=== PATIENT | female | born 1970 | race Caucasian/White ===

== ENCOUNTER 2020-02-22 14:12 | Emergency (ER) | payer BC, SELFPAY ==
[2020-02-22 14:45] VITALS: PULSE 66; RESP 18; O2SAT 99; BMI 36.6
[2020-02-22 14:51] VITALS: BP 142/77
[2020-02-22 15:14] VITALS: TEMP 36.7
--- NOTE | 2020-02-22 15:18 | HMH.EDUTC ---
[facility] Disposition Clinical Impression: Exposure to viral disease Disposition: Home, Self-Care Condition on Discharge: Good Instructions: Preventing the Spread of Coronavirus Discharge Instructions Additional Instructions: Drink plenty of fluids. Take tylenol or ibuprofen for pain or fever. Follow up with your regular doctor. GO TO THE ER FOR ANY WORSENING SYMPTOMS FOLLOW THE DIRECTIONS ON THE COVID-19 HAND OUT THAT WE GAVE YOU REGARDING SELF-ISOLATION UNTIL YOU KNOW YOUR COVID-19 RESULTS Referrals: Kelly Viera [Primary Care Provider] - Forms: Work/School Release Time of Disposition: 15:21 Medical Decision Making - Medical Records Medical records reviewed: No: I reviewed the patient's medical records. - Rad Inquiry Pt receiving controlled substance: No Vital Signs: 02/22/20 14:45 02/22/20 14:51 02/22/20 15:14 Temperature 98.0 F Temperature Source Oral Pulse Rate Pulse Rate [Radial] 66 Respiratory Rate 18 Blood Pressure Blood Pressure [Right Arm] 142/77 H Blood Pressure Mean [Right Arm] 98 Blood Pressure Source Blood Pressure Source [Right Arm] Automatic Cuff Blood Pressure Position Blood Pressure Position [Right Arm] Sitting 02 Sat by Pulse Oximetry 99 Oxygen Delivery Method Room Air 02/22/20 15:27 Temperature 98.0 F Temperature Source Oral Pulse Rate 66 Pulse Rate [Radial] Respiratory Rate 18 Blood Pressure 142/77 H Blood Pressure [Right Arm] Blood Pressure Mean [Right Arm] Blood Pressure Source Automatic Cuff Blood Pressure Source [Right Arm] Blood Pressure Position Sitting Blood Pressure Position [Right Arm] 02 Sat by Pulse Oximetry Oxygen Delivery Method Room Air [facility] HPI - General Stated complaint: wants covid test Time Seen by Provider: 02/22/20 14:50 Mode of Arrival: Ambulatory Source of Information: Patient Limitations: No Limitations Description of Symptoms (Recalled from Triage Doc. by RN): wants covid test HEENT Symptoms (Recalled from RN notes): No Resp Symptoms (Recalled from RN notes): No Skin Symptoms (Recalled from RN notes): No MS Symptoms (Recalled from RN notes): No Functional Status (Recalled from RN notes): wnl - History of Present Illness Provider Complaint: She denies any symptoms. Her started running a fever and feeling bad this morning. She denies any known exposure to COVID-19. - Related Data Allergies Allergy/AdvReac Type Severity Reaction Status Date / Time No Known Allergies Allergy Unverified 05/12/17 15:07 - Worker's Comp Is this a Worker's Comp case?: No H History - Hepatitis A Screen Drug use history?: No High risk sexual behaviors?: No History of sexually transmitted infection?: No Currently employed?: No Childcare worker?: No Do you have indoor plumbing?: Yes Do you have electricity?: Yes Attestation statement:: This patient has been screened for Hepatitis A risk factors. I have reviewed the patient's past medical history: Yes Medical History: Reports:: Diabetes Mellitus Type 2 Laterality Cases: Left: Other - Social History Alcohol Intake: never Occupational Status: other ROS Obtained: Yes All systems reviewed & no additional complaints - Constitutional Constitutional: Reports chills, Denies fever(s), Reports poor appetite, Reports malaise - Eyes Eyes: Denies eye discharge - ENT Ears, Nose, Mouth, and Throat: Reports as per HPI - Cardiovascular Cardiovascular: Denies chest pain Physical Exam - General General appearance: alert, in no apparent distress - Head Head exam: atraumatic, normocephalic, normal inspection - Eye Eye exam: Present: normal appearance, PERRL, EOMI - ENT ENT exam: Present: normal exam, normal oropharynx, mucous membranes moist, TM's normal bilaterally, normal external ear exam - Neck Neck exam: Present: normal inspection, full ROM, trachea midline. Absent: meningismus, lymphadenopathy - Chest Chest
[2020-02-22 15:27] VITALS: BP 142/77; PULSE 66; RESP 18; TEMP 36.7; O2SAT 99
== END 2020-02-22 15:28 | disposition home or self-care (01) ==
PROVIDERS: Emergency Provider Nurse Practitioner Family; PCP Physician Assistant
DX: U07.1 COVID-19 (principal); E11.9 Type 2 diabetes mellitus without complications
CPT/HCPCS: 99202; U0003

== ENCOUNTER → 2020-07-09 09:44 | Outpatient (CLI) | payer BC, SELFPAY ==
--- NOTE | 2020-07-09 09:54 | XR_ITS ---
PROCEDURE: XR ANKLE WT BEARING LT MIN 3V CLINICAL INDICATION: fracture COMPARISON: No exams were available for comparison FINDINGS: : There is a mildly distal fibular fracture. There is overlying cast material. The upper lateral ankle mortise is narrowed. There is no additional fracture. A prominent os trigonum is incidentally noted. There is a moderate amount of soft tissue swelling over the lateral malleolus. Overlying cast material obscures that soft tissue details. IMPRESSION: Mildly distal fibular fracture with questionable narrowing at the superior lateral ankle mortise. Dictated by: Nubia Rivero MD 07/09/2020 11:37 Nubia Rivero MD in [place] 07/09/2020 11:37
--- NOTE | 2020-07-09 09:54 | XR_ITS ---
PROCEDURE: XR FOOT WT BEARING LT 3V CLINICAL INDICATION: Status post fall on Thursday pain and swelling COMPARISON: CR XR ANKLE WT BEARING LT MIN 3V from 07/09/2020 FINDINGS: There is an overlying cast which obscures some detail. There is an oblique fracture of the distal fibula partly visible on LT foot x-rays. No additional fracture or significant findings. IMPRESSION: Partial visualization of distal fibular fracture. No additional fracture in the foot. Dictated by: Nubia Rivero MD 07/09/2020 11:54 Nubia Rivero MD in [place] 07/09/2020 11:54
--- NOTE | 2020-07-09 12:22 | XR_ITS ---
PROCEDURE: XR CHEST 2V CLINICAL HISTORY: HTN Left ankle fracture common no symptoms on chest, non smoker diabetic COMPARISON: No exams were available for comparison FINDINGS: The cardiomediastinal silhouette and pulmonary vascularity are within normal limits. The lungs are clear without infiltrates, suspicious nodules, or pleural effusions. No acute bony abnormalities. IMPRESSION: No acute findings. Dictated by: Nubia Rivero 07/09/2020 12:54 Nubia Rivero in [place] 07/09/2020 12:54
--- NOTE | 2020-07-09 13:25 | ECG_ITS ---
APPROVED REPORT Exam: Resting ECG HR:54 bpm ECG Measurements Heart Rate 54 AXES MS 160 P 20 QRSd 138 QRS -4 QT 474 T 113 QTc 449 Conclusion Sinus bradycardia Left bundle branch block Abnormal ECG Electronically signed by : Leonard Hightower, 07/09/2020 17:39:10
[2020-07-09 14:33] LABS: Chloride 102 mmol/L (98-107)
[2020-07-09 14:34] LABS: Sodium 138 mmol/L (136-145)
[2020-07-09 14:36] LABS: Blood Urea Nitrogen 19 mg/dl (7-17); Estimated Glomerular Filt Rate 66 ml/min (>60); GFR (African American) 80 ML/MIN (>60)
[2020-07-09 14:37] LABS: Alanine Aminotransferase 48 U/L (12-78); Albumin Level 4.1 g/dl (3.5-5.0); Albumin/Globulin Ratio 1.4 (1.1-1.8); Alkaline Phosphatase 80 U/L (38-126); Anion Gap 8.5 mEq/L (5-15); Aspartate Amino Transferase 33 U/L (14-36); Bilirubin,Total 0.5 mg/dl (0.2-1.3); Calcium 9.8 mg/dl (8.4-10.2); Carbon Dioxide 32 mmol/L (22.0-30.0); Glucose 257 mg/dl (74-100); Potassium 4.5 mmoL/L (3.5-5.1); Total Protein,Serum 7.1 g/dl (6.3-8.2)
[2020-07-09 14:51] LABS: 25-OH Vitamin D, Total 52.5 ng/mL (30-100)
[2020-07-09 15:10] LABS: Basophils % 0.4 % (0.1-2.0); Eosinophils # 0.1 K/mm3 (0.0-0.4); Hemoglobin 13.2 g/dL (12.2-16.2); Lymphocytes # 1.3 K/mm3 (0.7-4.5); Lymphocytes % 22.7 % (10-50); Mean Corpuscular Hemoglobin 29.5 pg (27.0-31.2); Mean Corpuscular Volume 89.3 fl (81-99); Mean Platelet Volume 8.6 fl (7.4-10.4); Monocytes # 0.2 K/mm3 (0.1-1.0); Monocytes % 4.2 % (1.7-9.3); Neutrophils # 3.9 K/mm3 (1.8-7.8); Neutrophils % 70.7 % (37.0-80.0); Platelet Count 188 K/mm3 (142-424); Red Blood Count 4.48 M/mm3 (4.20-5.40); White Blood Count 5.6 K/mm3 (4.8-10.8)
[2020-07-09 15:22] LABS: Hemoglobin A1C 7.8 % (4.0-6.0)
== END ==
PROVIDERS: PCP Physician Assistant; Visit Provider Podiatrist
DX: M25.572 Pain in left ankle and joints of left foot (principal); M79.672 Pain in left foot; Z68.34 Body mass index [BMI] 34.0-34.9, adult; W00.0XXA Fall on same level due to ice and snow, initial encounter
CPT/HCPCS: 36415; 71046; 73610; 73630; 80053; 82306; 83036; 85025; 93005

== ENCOUNTER → 2020-07-16 13:06 | Outpatient (CLI) | payer BC, SELFPAY ==
[2020-07-16 14:30] LABS: Coronavirus 19 IgG Antibody Positive (Negative); Coronavirus 19 IgM Antibody Negative (Negative)
== END ==
PROVIDERS: Visit Provider Podiatrist
DX: Z01.818 Encounter for other preprocedural examination (principal); Z20.822 Contact with and (suspected) exposure to COVID-19; Z86.16 Personal history of COVID-19; S82.842A Displaced bimalleolar fracture of left lower leg, initial encounter for closed fracture; S82.892A Other fracture of left lower leg, initial encounter for closed fracture; S93.422A Sprain of deltoid ligament of left ankle, initial encounter; W00.0XXA Fall on same level due to ice and snow, initial encounter
CPT/HCPCS: 86328

== ENCOUNTER → 2020-07-18 10:49 | Outpatient (CLI) | payer BC, SELFPAY ==
--- NOTE | 2020-07-18 10:53 | CA_ITS ---
APPROVED REPORT EXAM: Comprehensive 2D, Doppler, and color-flow Echocardiogram Senior Category Manager: Rigoberto RCS, RVS Ht: 5 ft 4 in Wt: 200lbs BSA: 1.96 BP: 144/76 mmHg Indications: Pre-op, Abn EKG, RBBB, bradycardia 2D Dimensions IVSd 0.81 cm LVEF (Visual) 54.30 % PWd 0.95 cm LA Volume 32.20 mL LVDd 4.70 cm LA Volume Index 16.10 mL/m2 (M/F) 16-34 LVDs 3.38 cm Aortic Root 3.02 cm Left Atrium 2.93 cm LVOT 1.82 cm (M/F) 1.5-2.5 M-Mode Dimensions LA Diam 3.52 cm (1.9-4.0) Ao Diam 3.30 cm (2.0-3.7) TAPSE 2.13 (<1.7) LV Diastology E Decel Time 207.00 (160-240 msec) E/A Ratio 0.91 MED E' 5.30 (< 7 cm/sec) MED A' 7.90 cm/s E'/MED E' Ratio 15.55 (>14) LAT E' 9.40 (<10 cm/sec) LAT A' 10.20 cm/s E/LAT E' Ratio 8.77 (>14) Aortic Valve LVOT Max 97.00 (70-110 cm/s) LVOT VTI 21.05 cm AoV Peak Shailesh. 129.00 (50-130 cm/s) AO Peak GR. 6.70 mmHg AO Mean GR. 3.60 (<5 mmHg) AO VTI 28.66 (18-25 cm) AMAURY (VTI) 1.91 (2.5-4.5 cm2) Mitral Valve MV E Max Shailesh. 82.00 (40-130 cm/s) MV A Velocity 90.00 (40-130 cm/s) E/A Ratio 0.91 MV Decel. Time 207.00 (160-240 ms) MV PHT 61.00 ms Pulmonary Valve PV Peak Velocity 84.00 (50-150 cm/s) Tricuspid Valve TR P. Velocity 246.00 cm/s RAP Estimate 10.00 mmHg RVSP 34.30 mmHg Left Ventricle Left atrium is mildly enlarged, left ventricle is normal size, mild concentric left ventricular hypertrophy, visually estimated ejection fraction 55% with no regional wall motion abnormality, grade 1 diastolic dysfunction seen without tissue Doppler evidence of raise left atrial pressure. Right Ventricle Right atrium and right ventricle are normal size and contractility. Aortic Valve Aortic valve is grossly normal, there is no aortic stenosis or aortic insufficiency. Mitral Valve Mitral valve is grossly normal, there is trace mitral regurgitation. Tricuspid Valve Tricuspid grossly normal, there is trace tricuspid regurgitation, tricuspid regurgitation jet velocity is inadequate for calculation of the right ventricular systolic pressure. Pulmonic Valve Pulmonic valve is poorly visualized. Great Vessels Aortic root is normal size. Pericardium No significant pericardial effusion noted. Conclusion 1. Mildly enlarged left atrium, normal left ventricular size, mild concentric left ventricular hypertrophy, visually estimated ejection fraction 55% with no regional wall motion abnormality, grade 1 diastolic dysfunction seen without tissue Doppler evidence of raise left atrial pressure. 2. Trace mitral and tricuspid regurgitation. 3. No significant pericardial effusion noted. Electronically signed by : Pedro Luis Mosley, 07/19/2020 13:23:35
[2020-07-18 11:04] VITALS: BMI 34.3
--- NOTE | 2020-07-18 11:05 | XR_ITS ---
PROCEDURE: XR ANKLE LT MIN 3V CLINICAL INDICATION: pre surgical Follow-up fracture COMPARISON: CR XR ANKLE WT BEARING LT MIN 3V from 07/09/2020 FINDINGS: There is a posterior splint in place. There is a nondisplaced oblique distal fibular fracture. The ankle mortise appears slightly widened. IMPRESSION: Nondisplaced distal fibular fracture with mildly widened ankle mortise Dictated by: Duane Proctor MD 07/18/2020 17:12 Duane Proctor MD in [place] 07/18/2020 17:12
== END ==
PROVIDERS: PCP Physician Assistant; Visit Provider Physician Assistant
DX: Z01.818 Encounter for other preprocedural examination (principal); I10 Essential (primary) hypertension; R94.31 Abnormal electrocardiogram [ECG] [EKG]; M25.572 Pain in left ankle and joints of left foot; M79.672 Pain in left foot
CPT/HCPCS: 73610; 93306

== ENCOUNTER → 2020-07-19 07:16 | Outpatient (CLI) | payer BC, SELFPAY ==
--- NOTE | 2020-07-19 | CA_ITS ---
APPROVED REPORT Exam: Pharmacologic Technologist: Shannon Martinez, Ht: 5 ft 4 in Wt: 200 lbs BSA: 1.96 m2 HR: 60 bpm BP: 111/75 mmHg Medical History Medications: Metoprolol,,,,, Metformin,,,,, Gabapentin,,,,, HCTZ,,,,, Citalopram,,,,, AtrovASTATIN,,,,, DApagliflozin,,,,, ONdansentron,,,,, Stress Test Details Test: LEXISCAN HR Resting HR: 61 bpm Max Heart Rate (APMHR): 169 bpm Max HR Achieved: 76 bpm Target HR (85% APMHR): 143 bpm % of APMHR: 44 Recovery HR: 70 bpm BP Resting BP: 111/75 mmHg Max BP: 111/75 mmHg Recovery BP: 102.0/69.0 mmHg ECG Resting ECG: NSR, LBBB Clinical Exercise duration: 04:00 min Highest Stage Achieved: Stress ECG Conclusion Symptoms: 1 minute Malaise, SOA. 3 minute Light-headed layed pt back in chair. During Recovery 3 minute Sxs resolved. No CP Arrythmias/Ectopy: None ST-T Changes: Exaggeration of baseline abns Conclusion: Unremarkable Lexiscan stress. Myoview images reported separately. Test Summary REST . . . . . . . Resting REST 04:08 . . 61 . 111/ 75 . . Stage 1 . . . . . . . Cardiolite injected Stage 1 01:00 . . 61 . . . . Stage 2 01:00 . . 68 . . . . Stage 3 01:00 . . 68 . 85/ 52 . . Stage 4 01:00 . . 66 . 95/ 64 . Stop exercise at 04:00 RECOVERY 01:00 . . 66 . . . . RECOVERY 02:00 . . 69 . 101/ 65 . . RECOVERY 03:00 . . 72 . 107/ 72 . . RECOVERY 04:00 . . 75 . 107/ 72 . . RECOVERY 05:00 . . 72 . 104/ 66 . . RECOVERY 06:00 . . 72 . 104/ 66 . . RECOVERY 07:00 . . 71 . 102/ 69 . . RECOVERY 08:00 . . 68 . 102/ 69 . . RECOVERY 09:00 . . 70 . 107/ 71 . . RECOVERY 09:17 . . 68 . 107/ 71 . . Electronically signed by : Pedro Luis Mosley, 07/19/2020 13:43:26
--- NOTE | 2020-07-19 07:43 | NM_ITS ---
APPROVED REPORT Exam: Nuclear Stress Test Indication: HTN, DM, HYPERLIPIDEMIA, FM HX, ABN EKG Patient Location: Outpatient Stress Tech: Sasha Britton NM Tech:Estrella Talavera ANKUSH RT(R)(N) Ht: 5 ft 4 in Wt: 200 lbs Bra Size: 42DD HR: 60 bpm BP: 111/75 mmHg BSA: 1.96 m2 BMI: 34.3 History: HTN, DM, HYPERLIPIDEMIA, FM HX, ABN EKG Procedure: Patient received a 0.4 mg of intravenous Lexiscan, resting heart rate 60 bpm, resting blood pressure 111/75 mmHg, with Lexiscan maximum heart rate achived was 72 bpm which is Less than 85 % of the maximum predicted heart rate and blood pressure was 85/52 mmHg. With Lexiscan, patient denied any complaint of chest pain. Electrocardiogram Resting electrocardiogram showed sinus rhythm, with Lexiscan there is less than 1.[address] segment depression noted from the baseline EKG. The EKG portion of the Lexiscan is nondiagnostic. Cardiac Stress and Resting SPECT Images: Cardiac Stress and Resting SPECT images were obtained using technetium 99m Myoview 32.9 mCi stress and 10.10 mCi at rest. Gated SPECT for analysis of segmental wall motion and calculation of the ejection fraction also done, Prone images were also obtained. Cardiac stress and rest SPECT images show uniform myocardial activity without segmental perfusion abnormality, computer derived ejection fraction is 55% with no regional wall motion abnormality, right ventricle is normal size and contractility. Conclusion: 1. The EKG portion of the Lexiscan is nondiagnostic. 2. No scintigraphic evidence of reversible ischemia seen, computer derived ejection fraction is 55% with no regional wall motion abnormality, right ventricle is normal size and contractility. 3. Normal Lexiscan Myoview study. Electronically signed by : Pedro Luis Mosley, 07/19/2020 14:49:11
--- NOTE | 2020-07-19 10:24 | HMH.ITSHM ---
Current Home Medications as stated by this patient Chelsie Nuñez or technical sales representatives. [] metoprolol gabapentin atorrastatin
== END ==
PROVIDERS: PCP Physician Assistant; Visit Provider Physician Assistant
DX: Z01.818 Encounter for other preprocedural examination (principal); R94.31 Abnormal electrocardiogram [ECG] [EKG]; E11.9 Type 2 diabetes mellitus without complications; I10 Essential (primary) hypertension; Z79.84 Long term (current) use of oral hypoglycemic drugs
CPT/HCPCS: 78452; 93017; A9502; J2785

== ENCOUNTER 2020-07-20 08:56 | Day surgery (SDC) | payer BC, SELFPAY ==
[2020-07-11 14:19] VITALS: BMI 34.7
[2020-07-20] VITALS (11 sets, daily range): BP systolic 132–144; BP diastolic 74–94; PULSE 55–66; RESP 12–18; TEMP 36.4–43; O2SAT 92–100
[2020-07-20 10:16] LABS: POC Glucose,Bedside 169 (70-110)
[2020-07-20 11:13] LABS: Adenovirus,PCR Not Detected (NotDetected); Bordetella Pertussis Not Detected (NotDetected); Chlamydophila Pneumoniae, PCR Not Detected (NotDetected); Coronavirus 19, PCR Not Detected (NotDetected); Coronavirus 229E Not Detected (NotDetected); Coronavirus NL63 Not Detected (NotDetected); Coronavirus OC43 Not Detected (NotDetected); Coronovirus HKU1,PCR Not Detected (NotDetected); Human Metapneumovirus Not Detected (NotDetected); Influenza A, PCR Not Detected (NotDetected); Influenza AH1, 2009 Not Detected (NotDetected); Influenza AH1, PCR Not Detected (NotDetected); Influenza AH3,PCR Not Detected (NotDetected); Influenza B, PCR Not Detected (NotDetected); Mycoplasma Pneumoniae, PCR Not Detected (NotDetected); Parainfluenza 1, PCR Not Detected (NotDetected); Parainfluenza 2, PCR Not Detected (NotDetected); Parainfluenza 3, PCR Not Detected (NotDetected); Parainfluenza 4, PCR Not Detected (NotDetected); Respiratory Syncytial Virus Not Detected (NotDetected); Rhinovirus/Enterovirus Not Detected (NotDetected)
--- NOTE | 2020-07-20 13:00 | HMH.OPNOTE ---
Date of procedure: 07/20/20 Pre-op Diagnosis:: 1. Left ankle (distal fibula) fracture 2. Left deltoid ligament injury/tear 3. Left syndesmosis instability 4. Left ankle injury 5. Left ankle synovitis Post-op Diagnosis:: Same Procedure performed:: 1. Left ORIF distal fibula 2. Left ORIF syndesmosis 3. Left deltoid ligament repair, medial ankle arthrotomy 4. Left ankle synovectomy 5. Left application of graft 6. Left application of posterior splint Surgeon:: Josiane Rizvi DPM VIRTUAL ASSISTANT FOR ADVERTISERS:: Bam Weller Anesthesia: GETA, regional (left popliteal nerve block) Estimated blood loss (mL): 20 Clinical Note:: Patient is a 50-year-old well-controlled diabetic female who fell several weeks ago. Unfortunately her surgical intervention was delayed due to some cardiac testing due to an abnormal EKG. X-rays 3 views left ankle from [facility] taken 07/06/2020. Report noted. 3 views demonstrate a minimally displaced acute distal fibular fracture. There is a small 6 mm avulsion fracture from the tip of the distal fibula. There is widening of the medial clear space measuring 5 mm suggestive of ligamentous injury. There is lateral malleolar soft tissue swelling. Impression: Acute minimally displaced fracture of the fibula with possible ligamentous injury. X-rays 3 views of left foot and ankle taken 07/09/20, evaluated by myself. New x-rays taken as the patient had put some weight down and I explained this could potentially be surgical fracture and new x-rays would allow me to evaluate whether surgical or not. X-rays reviewed and discussed with the patient. FINDINGS: There is a mildly distal fibular fracture. There is overlying cast material. The upper lateral ankle mortise is narrowed. There is no additional fracture. A prominent os trigonum is incidentally noted. There is a moderate amount of soft tissue swelling over the lateral malleolus. Overlying cast material obscures that soft tissue details. IMPRESSION: Mildly distal fibular fracture with questionable the narrowing at the superior lateral ankle mortise. Conservative treatment discussed but not recommended. DOI: 07/06/20. We discussed surgery. All risks and benefits were discussed including but not limited to: damage to blood vessels and nerves, bleeding, infection, wound complications, delayed, mal or non-union of bone, post-traumatic arthritis, need for further surgery, need for removal of implant, prolonged swelling of the extremity, prolonged pain, CRPS/RSD, DVT, and anesthetic complications. We had a long discussion about complications with diabetes, including delay in skin and bone healing. We discussed increased risk of infection. We also discussed Charcot in terms of neuropathy. Patient did have some sensation on monofilament testing but takes gabapentin for restless leg syndrome. We discussed posttraumatic osteoarthritis. We also discussed DVT prophylaxis. Patient has no personal or family history of DVT/PE. Recommend patient take aspirin postoperatively. No guarantees were given. All questions fully answered. The patient verbalized understanding and agreed to proceed with surgery. Consent was obtained. Necessary labs and pre-op testing ordered: CBC, BMP, EKG, CXR wnl, Ha1c 7.8%, vit D 52.5, covid rapid positive, PCR negative. PCP-Dr. Kelly Viera. Pt was given a e-Rx for [place] 7.5/325 #30, Zofran, Motrin. Patient has crutches. Recommend rolling knee scooter. Cardiology cleared granted 07/19/20. Operative findings:: Left distal fibula spiral oblique fracture with mild comminution noted at the proximal superior fracture site. No cartilage formation noted. Ankle had synovial fluid. Deltoid ligament partially torn with widening of the medial clear space. The syndesmosis did not widen prior to fixation. Post reduction and fixation, negative anterior drawer, negative talar tilt, negative external rotation stress test. Operative note:: On this date and time patient was deemed an appropriate madelin
--- NOTE | 2020-07-20 14:57 | XR_ITS ---
PROCEDURE: XR ANKLE LT 2V CLINICAL INDICATION: ORIF left ankle, in OR follow-up ORIF COMPARISON: CR XR ANKLE WT BEARING LT MIN 3V from 07/09/2020 CR XR ANKLE LT MIN 3V from 07/18/2020 FINDINGS: Fluoroscopy time: 52 seconds. Status post ORIF with lateral fibular bone plate, translucent fixator at the tib fib region, medial malleolar anchor screw, and an additional screw within the fibula. There is good alignment. IMPRESSION: Good alignment status post ORIF distal tib fib Dictated by: Duane Proctor MD 07/20/2020 15:13 Duane Proctor MD in [place] 07/20/2020 15:13
--- NOTE | 2020-07-20 15:00 | XR_ITS ---
PROCEDURE: XR ANKLE LT MIN 3V CLINICAL INDICATION: Post op ankle ORIF Follow-up surgery COMPARISON: CR XR ANKLE WT BEARING LT MIN 3V from 07/09/2020 CR XR ANKLE LT MIN 3V from 07/18/2020 CR XR ANKLE LT 2V from 07/20/2020 FINDINGS: Status post ORIF distal tib fib. There is a lateral fibular bone plate with translucent fixator. [place] screw is present at the medial malleolar region. There is good alignment. Posterior splint is in place. IMPRESSION: Good alignment status post ORIF distal fibular fracture Dictated by: Duane Proctor MD 07/20/2020 16:04 Duane Proctor MD in [place] 07/20/2020 16:04
--- NOTE | 2020-07-20 15:16 | P.PN_ITS ---
[facility] Anesthesia Checklist - Structural Data Admitted From: Home Planned Operative Procedure/s: orif l ankle Consent for Planned Operative Procedure(s) Verified: Yes - Additional verifications Anesthesia Reactions: No Hx Blood Transfusions: No Blood Transfusion Reaction: No - Airway Assessment C-Spine Mobility Assessed: Yes TMJ Mobility Assessed: Yes Dentition: Good Dentition - Neurological Assessment Level of Consciousness: Awake, Alert, Appropriate - Anesthesia Plan Anesthesia Risk discussed: Yes Anesthesia Plan: Verified ASA Class: II Anesthesia Type: General w/block [facility] History I have reviewed the patient's past medical history: Yes Medical History: Reports:: Diabetes Mellitus Type 2, Hyperlipidemia, Hypertension Denies:: Cancer, Diabetes Mellitus Type 1, Internal Pacemaker, MRSA, Seizures *Have you ever received a pneumonia vaccine?: No *Have you received a flu vaccine this season?: Yes Other Medical History: Denies: Blood Transfusion Reaction Anesthesia experience/problems:: none Laterality Cases: Left: Other Other Surgeries: Yes: Tubal Ligation. No: Pacemaker Amputation: No Fractures: No - *Social History Last grade of school completed: High school graduate Smoking Status: Never smoker Alcohol Intake: never Substance Use Type: denies use *Occupational Status:: employed Housing: house Household Members: spouse *Travel in the last 8 weeks: None Family Hx:: Coronary Artery Disease, Diabetes, Heart Attack, Hyperlipidemia, Hypertension, Stroke
--- NOTE | 2020-07-20 15:17 | HMH.ANESI ---
[facility] Anesthesia Record Part I Intake, IV Amount: 1,500 Estimated blood loss (mL): 0 Urine output (mL): 0 Blood Pressure: 138/82 SaO2: 92 Pulse Rate: 66 Respiratory Rate: 12 Temperature: 97.5 F Patient is:: Awake, Stable Stable to PACU at:: 15:15
== END 2020-07-20 16:29 | disposition home or self-care (01) ==
LOC: OR 08:58
PROVIDERS: PCP Physician Assistant; Visit Provider Podiatrist
PROC: (CPT 27814; principal; 2020-07-20 11:45)
DX: S82.842A Displaced bimalleolar fracture of left lower leg, initial encounter for closed fracture (principal); S93.422A Sprain of deltoid ligament of left ankle, initial encounter; E11.42 Type 2 diabetes mellitus with diabetic polyneuropathy; Z79.4 Long term (current) use of insulin; I10 Essential (primary) hypertension; Z79.899 Other long term (current) drug therapy; W00.0XXA Fall on same level due to ice and snow, initial encounter; Y92.018 Other place in single-family (private) house as the place of occurrence of the external cause
CPT/HCPCS: 27814; 27695; C5271; 73600; 73610; 76000; 82962; 87581; 87633; 87798; 96374; C1713; C1762; C1776; J2405; Q4211

== ENCOUNTER → 2020-07-20 09:04 | Outpatient (CLI) | payer BC, SELFPAY ==
[2020-07-20 10:35] LABS: Coronavirus 19 IgG Antibody Positive (Negative)
[2020-07-20 10:36] LABS: Coronavirus 19 IgM Antibody Positive (Negative)
--- NOTE | 2020-07-20 13:52 | P.PN_ITS ---
[facility] Anesthesia Checklist - Structural Data Admitted From: Home Planned Operative Procedure/s: orif l ankle Consent for Planned Operative Procedure(s) Verified: Yes - Additional verifications Anesthesia Reactions: No Hx Blood Transfusions: No Blood Transfusion Reaction: No - Airway Assessment C-Spine Mobility Assessed: Yes TMJ Mobility Assessed: Yes Dentition: Good Dentition - Neurological Assessment Level of Consciousness: Awake, Alert, Appropriate - Anesthesia Plan Anesthesia Risk discussed: Yes Anesthesia Plan: Verified ASA Class: II Anesthesia Type: General w/block [facility] History I have reviewed the patient's past medical history: Yes Medical History: Reports:: Diabetes Mellitus Type 2, Hyperlipidemia, Hypertension Denies:: Cancer, Diabetes Mellitus Type 1, Internal Pacemaker, MRSA, Seizures *Have you ever received a pneumonia vaccine?: No *Have you received a flu vaccine this season?: Yes Other Medical History: Denies: Blood Transfusion Reaction Anesthesia experience/problems:: none Laterality Cases: Left: Other Other Surgeries: Yes: Tubal Ligation. No: Pacemaker Amputation: No Fractures: No - *Social History Smoking Status: Never smoker Alcohol Intake: never Substance Use Type: denies use *Occupational Status:: employed Housing: house Household Members: spouse *Travel in the last 8 weeks: Inside the [place] Family Hx:: Coronary Artery Disease, Diabetes, Heart Attack, Hyperlipidemia, Hypertension, Stroke
== END ==
PROVIDERS: Visit Provider Podiatrist
DX: Z01.818 Encounter for other preprocedural examination (principal); Z20.822 Contact with and (suspected) exposure to COVID-19; Z86.16 Personal history of COVID-19; S82.892A Other fracture of left lower leg, initial encounter for closed fracture
CPT/HCPCS: 36415; 86328

== ENCOUNTER → 2020-07-23 09:22 | Outpatient (CLI) | payer BC, SELFPAY ==
--- NOTE | 2020-07-23 09:29 | XR_ITS ---
PROCEDURE: XR FOOT WT BEARING LT 3V CLINICAL INDICATION: Fall Posttraumatic pain, follow-up surgery COMPARISON: CR XR FOOT WT BEARING LT 3V from 07/09/2020 CR XR ANKLE LT MIN 3V from 07/20/2020 FINDINGS: Posterior splint is present. Status post ORIF distal fibula with an anchor screw in the medial malleolar region. No foot fracture or dislocation is evident. The joint spaces are well-preserved. No significant degenerative/arthritic changes. No erosive changes evident. Other findings:None. IMPRESSION: Postsurgical changes. Unremarkable foot. Bony detail is somewhat limited due to the underlying splint Dictated by: Duane Proctor MD 07/23/2020 13:06 Duane Proctor MD in [place] 07/23/2020 13:06
== END ==
PROVIDERS: PCP Physician Assistant; Visit Provider Podiatrist
DX: Z98.890 Other specified postprocedural states (principal); S93.422D Sprain of deltoid ligament of left ankle, subsequent encounter; S82.832D Other fracture of upper and lower end of left fibula, subsequent encounter for closed fracture with routine healing; S82.842D Displaced bimalleolar fracture of left lower leg, subsequent encounter for closed fracture with routine healing
CPT/HCPCS: 73630

== ENCOUNTER → 2020-08-14 07:36 | Outpatient (CLI) | payer BC, SELFPAY ==
--- NOTE | 2020-08-14 07:41 | XR_ITS ---
PROCEDURE: XR ANKLE WT BEARING LT MIN 3V CLINICAL INDICATION: POST SURGERY,FX OF LT ANKLE COMPARISON: CR XR ANKLE WT BEARING LT MIN 3V from 07/09/2020 CR XR ANKLE LT MIN 3V from 07/18/2020 CR XR ANKLE LT 2V from 07/20/2020 CR XR ANKLE LT MIN 3V from 07/20/2020 FINDINGS: There is good alignment status post ORIF distal tib fib with lateral fibular bone plate, translucent fixator at the tib fib region distally and an anchor screw in the medial malleolar region. The splint has been removed. Ununited ossicles noted at the tip of the fibula. Fibular fracture line is becoming less prominent. IMPRESSION: Good alignment status post ORIF distal tib fib as described above. Dictated by: Duane Proctor MD 08/14/2020 09:03 Duane Proctor MD in [place] 08/14/2020 09:03
== END ==
PROVIDERS: PCP Physician Assistant; Visit Provider Podiatrist
DX: S82.892D Other fracture of left lower leg, subsequent encounter for closed fracture with routine healing (principal)
CPT/HCPCS: 73610

== ENCOUNTER → 2020-08-29 07:43 | Outpatient (CLI) | payer BC, SELFPAY ==
--- NOTE | 2020-08-29 07:47 | XR_ITS ---
PROCEDURE: XR ANKLE WT BEARING LT MIN 3V CLINICAL INDICATION: post-op Follow-up surgery COMPARISON: CR XR ANKLE LT MIN 3V from 07/18/2020 CR XR ANKLE LT 2V from 07/20/2020 CR XR ANKLE LT MIN 3V from 07/20/2020 CR XR ANKLE WT BEARING LT MIN 3V from 08/14/2020 FINDINGS: Status post ORIF distal tib fib with lateral fibular bone plate cortical screws, translucent fixator at the distal tib fib and an anchor screw at the medial malleolar region. Good alignment of the fibular fracture overall not significantly changed. No change well corticated calcific density at the distal fibula. Prominent os trigonum and small calcaneal spur noted. IMPRESSION: Good alignment status post ORIF distal fibula Dictated by: Duane Proctor MD 08/29/2020 08:30 Duane Proctor MD in [place] 08/29/2020 08:30
== END ==
PROVIDERS: PCP Physician Assistant; Visit Provider Podiatrist
DX: Z98.890 Other specified postprocedural states (principal); M79.672 Pain in left foot
CPT/HCPCS: 73610

== ENCOUNTER 2020-10-10 16:00 | Outpatient (RCR) | payer BC, SELFPAY ==
--- NOTE | 2020-09-04 17:16 | HMH.PTOPEV ---
PT Outpatient Evaluation Rehab PT Outpatient Evaluation Start: 09/04/20 15:55 Freq: Status: Active Protocol: Document 09/04/20 15:55 ANTONIO (Rec: 09/04/20 17:16 [id number] [id number]) Electronically Signed By Aris Mauro, PT 09/04/20 15:55 Outpatient Therapy Subjective History Subjective History Pt. is a 50 year old female who presents to outpatient PT clinic w/ complaints of subacute and activity dependent( out of my boot ) LLE ankle P! s/p displaced bimalleolar fx. on 07/20/20. Pt. reports slipping and falling while walking on ice on 07/06/20. Pt. reports X -rays at [facility] ruled in LLE distal tib./fib. fractures. Pt. reports donning a LLE ankle/ft . splint prior to surgery date . Pt. reports she was NWB(knee scooter) on LLE s/p until last Thursday(08/31/20). Pt. reports she is currently progressive partial weight bearing w/ FWW at this time( see protocol). Pt. also reports Dr. Rizvi wants her in an ankle brace after . Pt. RTMD 10/18/20. Current medications include Atorvastatin, Metformin, Farxiga, Citalopram, Metoprolol, and Hydrochlorothiazide. PMH includes a tubal ligation, bilateral Blepharoplasties, Type II Diabetes, Hyperlipidemia, Ablation, RUE wrist ganglion cystectomy, and an Oophorectomy. Chief Complaint Pain,Stiff,Swelling,Weakness Symptom Type Ache Symptoms Relieved By Rest/Positioning,Ice,Brace/ Support Symptoms Aggravated By Standing,Physical Activity, Twisting,Walking,Lifting Prior Functional Limitations None Current Functional Limitations Lifting,Housework,Standing, Squatting,Recreation Activity, Walking,Stairs,Balance Symptom Description
== END 2020-10-25 09:50 | disposition home or self-care (01) ==
LOC: PT.CARL 16:00
PROVIDERS: PCP Physician Assistant; Visit Provider Podiatrist
DX: S82.842A Displaced bimalleolar fracture of left lower leg, initial encounter for closed fracture (principal); S82.892A Other fracture of left lower leg, initial encounter for closed fracture; R60.9 Edema, unspecified; Z98.890 Other specified postprocedural states
CPT/HCPCS: 97010; 97110; 97112; 97116; 97163

== ENCOUNTER → 2020-10-18 09:38 | Outpatient (CLI) | payer BC, SELFPAY ==
--- NOTE | 2020-10-18 09:43 | XR_ITS ---
PROCEDURE: XR ANKLE WT BEARING LT MIN 3V CLINICAL INDICATION: postop views COMPARISON: CR XR ANKLE WT BEARING LT MIN 3V from 07/09/2020 CR XR ANKLE LT 2V from 07/20/2020 CR XR ANKLE LT MIN 3V from 07/20/2020 CR XR ANKLE WT BEARING LT MIN 3V from 08/14/2020 CR XR ANKLE WT BEARING LT MIN 3V from 08/29/2020 FINDINGS: Follow-up surgery lateral fibular bone plate with cortical screws, translucent syndesmotic fixator, and anchor screw within the medial malleolus are once again noted. The ankle mortise is preserved. Faint visualization of the fracture line of the fibula. IMPRESSION: Good alignment status post ORIF healing fibular fracture Dictated by: Duane Proctor MD 10/18/2020 14:38 Duane Proctor MD in [place] 10/18/2020 14:38
== END ==
PROVIDERS: PCP Physician Assistant; Visit Provider Podiatrist
DX: Z98.890 Other specified postprocedural states (principal)
CPT/HCPCS: 73610

== ENCOUNTER 2021-12-24 13:10 | Emergency (ER) | payer BC, OTHER, SELFPAY ==
[2021-12-24 13:30] VITALS: BP 129/83; PULSE 72; RESP 19; TEMP 36.7; O2SAT 98; BMI 33.5
--- NOTE | 2021-12-24 13:42 | XR_ITS ---
FINAL REPORT CLINICAL HISTORY: Pain in right foot and 2nd toe, pain is worse when walking FINDINGS: Right foot Three views were obtained. There is no acute fracture or dislocation. Mild degenerative changes are present. No soft tissue abnormality is identified. IMPRESSION: No acute process. Reviewed, Interpreted and Dictated by Jorge Alberto Coburn III, MD Transcribed by Sabine Thomas Authenticated and [facility]
--- NOTE | 2021-12-24 14:09 | HMH.EDUTC ---
[facility] [place] Clinical Impression: Pseudogout Disposition: Home, Self-Care Condition on Discharge: Good Instructions: DI for Pseudogout, Indomethacin Additional Instructions: Do not take Ibuprofen or Motrin with Indomethacin FOllow up with your Family Doctor if no improvement or any worsening of symptoms Return if needed Straight to ER if any life threatening symptoms Prescriptions: Indomethacin 50 mg PO TID #15 cap Transmission Status: Sent to [facility] #[id number] Referrals: Kelly Viera [Primary Care Provider] - As needed Time of Disposition: 14:38 Medical Decision Making - Rad Inquiry Pt receiving controlled substance: No Rad was queried for this patient: No Vital Signs: 12/24/21 13:30 Temperature 98.1 F Temperature Source Oral Pulse Rate [Right Brachial] 72 Respiratory Rate 19 Blood Pressure [Right Arm] 129/83 Blood Pressure Mean [Right Arm] 98 Blood Pressure Source [Right Arm] Automatic Cuff Blood Pressure Position [Right Arm] Sitting 02 Sat by Pulse Oximetry 98 Oxygen Delivery Method Room Air - Lab Data Lab Results 12/24/21 14:00: Uric Acid 5.9 Orders (Tests/Meds): ORDERS Category Date Time Status XR foot RT min 3V Stat Exams 12/24/21 13:42 Taken - Radiology Data #1 Image(s): Foot/Toes Image Reviewed: Yes I reviewed the patient's radiology image Preliminary Findings: No Fracture Seen [facility] [place] - General Stated complaint: possible gout in right foot Time Seen by Provider: 12/24/21 13:35 Mode of Arrival: Ambulatory Source of Information: Patient Limitations: No Limitations Description of Symptoms (Recalled from Triage Doc. by RN): PATIENT C/O PAIN AND SWELLING TO RIGHT FOOT SINCE THIS MORNING. SHE BELIEVES IT MAY BE GOUT HEENT Symptoms (Recalled from RN notes): No Resp Symptoms (Recalled from RN notes): No Skin Symptoms (Recalled from RN notes): No MS Symptoms (Recalled from RN notes): Yes Functional Status (Recalled from RN notes): WNL - History of Present Illness Provider Complaint: Patient state that she has been having pain redness and swelling in the top of her right foot around her second toe since this morning States that she doesnt remember doing anything to hurt her foot and feels like it may be gout - Related Data Home Medications Medication Instructions Recorded Confirmed atorvastatin 10 mg tablet 10 mg PO DAILY tab 07/09/20 10/18/20 citalopram 20 mg tablet 20 mg PO DAILY tab 07/09/20 10/18/20 gabapentin 300 mg capsule 300 mg PO DAILY cap 07/09/20 10/18/20 hydrochlorothiazide 25 mg tablet 25 mg PO DAILY tab 07/09/20 10/18/20 metoprolol tartrate 25 mg tablet 25 mg PO DAILY tab 07/09/20 10/18/20 Dapagliflozin Propanediol [Farxiga] 10 mg PO DAILY 07/11/20 10/18/20 metformin 500 mg tablet 1,000 mg PO BID tab 07/18/20 10/18/20 Previous Rx's Medication Instructions Recorded hydrocodone 7.5 mg-acetaminophen 1 tab PO Q4-6H PRN 7 Days #40 tab 07/11/20 325 mg tablet ibuprofen 800 mg tablet 800 mg PO BID #60 tab 07/11/20 ondansetron 4 mg disintegrating 4 mg PO Q6H 7 Days #28 tab 07/11/20 tablet Indomethacin 50 mg PO TID #15 cap 12/24/21 Allergies Allergy/AdvReac Type Severity Reaction Status Date / Time No Known Allergies Allergy Verified 10/18/20 14:50 - Worker's Comp Is this a Worker's Comp case?: No [facility] History - Hepatitis A Screen Attestation statement:: This patient has been screened for Hepatitis A risk factors. I have reviewed the patient's past medical history: Yes Medical History: Reports:: Diabetes Mellitus Type 2, Hyperlipidemia, Hypertension Denies:: Cancer, Diabetes Mellitus Type 1, Internal Pacemaker, MRSA, Seizures Other Medical History: Denies: Blood Transfusion Reaction Laterality Cases: Left: Other, Bilateral: Myringotomy (Ear Tubes), Tonsillectomy Other Surgeries: Yes: Tubal Ligation. No: Pacemaker Amputation: No Fractures: No Comment: right wrist cyst removal, ovary removed, b
[2021-12-24 14:22] LABS: Uric Acid 5.9 mg/dl (2.5-6.2)
[2021-12-24 14:45] VITALS: BP 129/83; PULSE 72; RESP 19; TEMP 36.7; O2SAT 98
== END 2021-12-24 14:48 | disposition home or self-care (01) ==
PROVIDERS: Emergency Provider Nurse Practitioner; PCP Physician Assistant
DX: M11.271 Other chondrocalcinosis, right ankle and foot (principal)
CPT/HCPCS: 73630; 84550; 99212; G0463

== ENCOUNTER → 2022-03-14 15:36 | Outpatient (CLI) | payer BC, SELFPAY ==
--- NOTE | 2022-03-14 15:36 | MM_ITS ---
PROCEDURE INFORMATION: Exam: MG Bilateral Screening 3D Mammography Exam date and time: 03/14/2022 3:57 PM Age: 52 years old Clinical indication: Screening. No family history of breast cancer. TECHNIQUE: Imaging protocol: Bilateral Screening tomosynthesis and 2D mammography including computer-aided detection (CAD) when performed. COMPARISON: MG MM DIGITAL LAUREL SCREENING 12/03/2020 3:58 PM FINDINGS: MAMMOGRAPHY: Breast composition: There are scattered areas of fibroglandular density. Mass: No suspicious mass. Architectural distortion: None. Calcifications: No suspicious calcifications. Asymmetric density: None. Skin thickening: None. Axillary adenopathy: None. IMPRESSION: No mammographic evidence of malignancy. Annual screening is recommended unless otherwise clinically indicated. ASSESSMENT: BI-RADS Category 1: Negative
== END ==
PROVIDERS: PCP Family Medicine; Visit Provider Family Medicine
DX: Z12.31 Encounter for screening mammogram for malignant neoplasm of breast (principal)
CPT/HCPCS: 77063; 77067

== ENCOUNTER → 2022-11-06 16:36 | Outpatient (CLI) | payer BC, SELFPAY ==
[2022-11-06 16:52] LABS: Creatinine,Urine Random 473 mg/dL (Not Estab.); Microalbumin/Creatinine Ratio 4.5
== END ==
PROVIDERS: Visit Provider Family Medicine
DX: E11.9 Type 2 diabetes mellitus without complications (principal); Z79.4 Long term (current) use of insulin
CPT/HCPCS: 82043; 82570

== ENCOUNTER → 2023-02-06 07:07 | Outpatient (CLI) | payer BC, SELFPAY ==
[2023-02-06 16:45] LABS: Basophils % 0.4 % (0.1-2.0); Eosinophils # 0.1 K/mm3 (0.0-0.4); Eosinophils % 2.3 % (0.1-12.0); Hematocrit 44.1 % (37.0-47.0); Hemoglobin 14.1 g/dL (12.2-16.2); Lymphocytes # 1.5 K/mm3 (0.7-4.5); Lymphocytes % 23.8 % (10-50); Mean Corpuscular HGB Conc 31.9 g/dL (31.8-35.4); Mean Corpuscular Hemoglobin 28.9 pg (27.0-31.2); Mean Corpuscular Volume 90.6 fl (81-99); Mean Platelet Volume 11.6 fl (7.4-10.4); Monocytes # 0.4 K/mm3 (0.1-1.0); Neutrophils # 4.3 K/mm3 (1.8-7.8); Neutrophils % 67.4 % (37.0-80.0); Platelet Count 158 K/mm3 (142-424); Red Blood Count 4.87 M/mm3 (4.20-5.40); Red Cell Distribution Width 13.4 % (11.5-17.5); White Blood Count 6.4 K/mm3 (4.8-10.8)
[2023-02-06 16:50] LABS: Alanine Aminotransferase 24 U/L (12-78); Albumin Level 3.9 g/dl (3.5-5.0); Albumin/Globulin Ratio 1.3 (1.1-1.8); Alkaline Phosphatase 126 U/L (38-126); Anion Gap 11.8 mEq/L (5-15); Aspartate Amino Transferase 23 U/L (14-36); Bilirubin,Total 0.5 mg/dl (0.2-1.3); Blood Urea Nitrogen 21 mg/dl (7-17); Carbon Dioxide 32 mmol/L (22.0-30.0); Chloride 101 mmol/L (98-107); Chol/HDL Ratio 3.7 (1-3.5); Cholesterol 133 mg/dl (140-200); Estimated Glomerular Filt Rate 52 ml/min (>60); GFR (African American) 63 ML/MIN (>60); Glucose 223 mg/dl (74-100); HDL Cholesterol 36 mg/dl (40-60); Potassium 4.8 mmoL/L (3.5-5.1); Sodium 140 mmol/L (136-145); Total Protein,Serum 6.9 g/dl (6.3-8.2); Triglycerides 121 mg/dl (30-150); VLDL Cholesterol 24 mg/dL (0-40)
[2023-02-06 17:00] LABS: Direct LDL Cholesterol 79.21 mg/dL (100-129)
[2023-02-06 17:15] LABS: Hemoglobin A1C 8.7 % (4.0-6.0)
== END ==
PROVIDERS: PCP Family Medicine; Visit Provider Family Medicine
DX: E11.9 Type 2 diabetes mellitus without complications (principal); I10 Essential (primary) hypertension; E78.5 Hyperlipidemia, unspecified; Z79.4 Long term (current) use of insulin; Z01.89 Encounter for other specified special examinations
CPT/HCPCS: 80053; 80061; 83036; 84443; 85025

== ENCOUNTER → 2023-03-23 16:21 | Outpatient (CLI) | payer BC, SELFPAY ==
--- NOTE | 2023-03-23 16:21 | MM_ITS ---
PROCEDURE INFORMATION: Exam: MG Bilateral Screening 3D Mammography Exam date and time: 03/23/2023 4:10 PM Age: 53 years old Clinical indication: Screening examination TECHNIQUE: Imaging protocol: Bilateral Screening tomosynthesis and 2D mammography including computer-aided detection (CAD) when performed. COMPARISON: 1. MG MM DIG SCREENING MAMM BI W/CAD 03/14/2022 3:57 PM 2. MG MM DIGITAL LAUREL SCREENING 12/03/2020 3:58 PM FINDINGS: MAMMOGRAPHY: Breast composition: There are scattered areas of fibroglandular density. Mass: None. Architectural distortion: None. Calcifications: No suspicious calcifications. Asymmetric density: None. Skin thickening: None. Axillary adenopathy: None. IMPRESSION: No mammographic evidence of malignancy. Annual screening is recommended unless otherwise clinically indicated. ASSESSMENT: BI-RADS Category 1: Negative
== END ==
PROVIDERS: PCP Family Medicine; Visit Provider Family Medicine
DX: Z12.31 Encounter for screening mammogram for malignant neoplasm of breast (principal)
CPT/HCPCS: 77063; 77067

== ENCOUNTER → 2023-04-01 15:34 | Outpatient (CLI) | payer BC, SELFPAY ==
[2023-04-01 16:22] LABS: Chloride 103 mmol/L (98-107); Potassium 3.6 mmoL/L (3.5-5.1); Sodium 140 mmol/L (136-145)
[2023-04-01 16:24] LABS: Blood Urea Nitrogen 19 mg/dl (7-17); Estimated Glomerular Filt Rate 52 ml/min (>60); GFR (African American) 63 ML/MIN (>60)
[2023-04-01 16:25] LABS: Alanine Aminotransferase 33 U/L (12-78); Albumin Level 4.2 g/dl (3.5-5.0); Albumin/Globulin Ratio 1.5 (1.1-1.8); Alkaline Phosphatase 110 U/L (38-126); Anion Gap 9.6 mEq/L (5-15); Aspartate Amino Transferase 32 U/L (14-36); Bilirubin,Total 0.5 mg/dl (0.2-1.3); Calcium 8.9 mg/dl (8.4-10.2); Carbon Dioxide 31 mmol/L (22.0-30.0); Globulin 2.8 g/dL (1.3-3.2); Glucose 109 mg/dl (74-100)
== END ==
PROVIDERS: PCP Family Medicine; Visit Provider Obstetrics & Gynecology
DX: N95.1 Menopausal and female climacteric states (principal)
CPT/HCPCS: 36415; 80053

== ENCOUNTER → 2023-05-22 16:48 | Outpatient (CLI) | payer BC, SELFPAY ==
[2023-05-21 16:34] LABS: Alanine Aminotransferase 27 U/L (12-78); Albumin Level 3.5 g/dl (3.5-5.0); Albumin/Globulin Ratio 1.3 (1.1-1.8); Alkaline Phosphatase 88 U/L (38-126); Anion Gap 8.3 mEq/L (5-15); Aspartate Amino Transferase 28 U/L (14-36); Bilirubin,Total 0.6 mg/dl (0.2-1.3); Blood Urea Nitrogen 20 mg/dl (7-17); Calcium 8.4 mg/dl (8.4-10.2); Carbon Dioxide 26 mmol/L (22.0-30.0); Chloride 106 mmol/L (98-107); Estimated Glomerular Filt Rate 52 ml/min (>60); GFR (African American) 63 ML/MIN (>60); Globulin 2.6 g/dL (1.3-3.2); Glucose 145 mg/dl (74-100); Potassium 4.3 mmoL/L (3.5-5.1); Sodium 136 mmol/L (136-145); Total Protein,Serum 6.1 g/dl (6.3-8.2)
[2023-05-21 17:13] LABS: Hemoglobin A1C 7.7 % (4.0-6.0)
== END ==
LOC: LAB.DROPOF 16:49
PROVIDERS: PCP Family Medicine; Visit Provider Nurse Practitioner Family
DX: E11.9 Type 2 diabetes mellitus without complications (principal); Z79.4 Long term (current) use of insulin; Z79.85 Long-term (current) use of injectable non-insulin antidiabetic drugs
CPT/HCPCS: 80053; 83036

== ENCOUNTER 2023-08-14 18:06 | Outpatient (CLI) | payer BC, SELFPAY ==
[2023-08-14 16:18] LABS: Chloride 106 mmol/L (98-107); Potassium 4.4 mmoL/L (3.5-5.1); Sodium 139 mmol/L (136-145)
[2023-08-14 16:19] LABS: Basophils # 0.1 K/mm3 (0-0.2); Basophils % 0.7 % (0.1-2.0); Eosinophils # 0.2 K/mm3 (0.0-0.4); Eosinophils % 2.4 % (0.1-12.0); Hematocrit 42.9 % (37.0-47.0); Lymphocytes # 1.2 K/mm3 (0.7-4.5); Lymphocytes % 19.5 % (10-50); Mean Corpuscular HGB Conc 32.7 g/dL (31.8-35.4); Mean Corpuscular Hemoglobin 29.9 pg (27.0-31.2); Mean Corpuscular Volume 91.6 fl (81-99); Mean Platelet Volume 10.5 fl (7.4-10.4); Monocytes # 0.3 K/mm3 (0.1-1.0); Monocytes % 5.3 % (1.7-9.3); Neutrophils # 4.6 K/mm3 (1.8-7.8); Platelet Count 258 K/mm3 (142-424); Red Blood Count 4.68 M/mm3 (4.20-5.40); Red Cell Distribution Width 13.6 % (11.5-17.5); White Blood Count 6.4 K/mm3 (4.8-10.8)
[2023-08-14 16:21] LABS: Alanine Aminotransferase 23 U/L (12-78); Albumin Level 3.7 g/dl (3.5-5.0); Albumin/Globulin Ratio 1.3 (1.1-1.8); Alkaline Phosphatase 108 U/L (38-126); Anion Gap 9.4 mEq/L (5-15); Aspartate Amino Transferase 27 U/L (14-36); Bilirubin,Total 0.7 mg/dl (0.2-1.3); Blood Urea Nitrogen 18 mg/dl (7-17); Calcium 8.8 mg/dl (8.4-10.2); Carbon Dioxide 28 mmol/L (22.0-30.0); Cholesterol 117 mg/dl (140-200); Estimated Glomerular Filt Rate 52 ml/min (>60); GFR (African American) 63 ML/MIN (>60); Globulin 2.8 g/dL (1.3-3.2); Glucose 109 mg/dl (74-100); Total Protein,Serum 6.5 g/dl (6.3-8.2); Triglycerides 86 mg/dl (30-150); VLDL Cholesterol 17 mg/dL (0-40)
[2023-08-14 16:22] LABS: Chol/HDL Ratio 5.1 (1-3.5); HDL Cholesterol 23 mg/dl (40-60)
[2023-08-14 16:34] LABS: Direct LDL Cholesterol 68.65 mg/dL (100-129)
[2023-08-14 16:37] LABS: Triiodothryronine (T3) Uptake 33 % (23.5-40.5)
[2023-08-14 16:38] LABS: T4 (Thyroxine) 9.2 ug/dl (5.53-11.0)
[2023-08-14 16:39] LABS: Free T4 (Free Thyroxine) 1.31 ng/dl (0.78-2.19)
[2023-08-14 16:40] LABS: 25-OH Vitamin D, Total 49.8 ng/mL (30-100)
[2023-08-14 16:52] LABS: Thyroid Stimulating Hormone 2.37 uIU/mL (0.465-4.68)
[2023-08-14 16:53] LABS: Hemoglobin A1C 7.4 % (4.0-6.0)
[2023-08-14 17:11] LABS: Vitamin B12 352 pg/mL (239-931)
== END 2023-08-14 23:59 ==
LOC: LAB.DROPOF 18:06
PROVIDERS: PCP Nurse Practitioner Family; Visit Provider Nurse Practitioner Family
DX: E11.9 Type 2 diabetes mellitus without complications (principal); R53.83 Other fatigue; E66.9 Obesity, unspecified; Z79.4 Long term (current) use of insulin; Z68.35 Body mass index [BMI] 35.0-35.9, adult; Z79.899 Other long term (current) drug therapy
CPT/HCPCS: 80053; 80061; 82306; 82607; 83036; 84436; 84439; 84443; 84479; 85025

== ENCOUNTER 2023-11-16 16:47 | Outpatient (CLI) | payer BC, SELFPAY ==
[2023-11-16 18:17] LABS: Hemoglobin A1C 6.6 % (4.0-6.0)
== END 2023-11-16 23:59 | disposition home or self-care (01) ==
LOC: LAB.DROPOF 16:47
PROVIDERS: PCP Nurse Practitioner Family; Visit Provider Nurse Practitioner Family
DX: E11.9 Type 2 diabetes mellitus without complications (principal); Z79.85 Long-term (current) use of injectable non-insulin antidiabetic drugs; Z79.4 Long term (current) use of insulin
CPT/HCPCS: 83036

== ENCOUNTER → 2023-12-01 07:18 | Outpatient (CLI) | payer BC, SELFPAY | LOC: SL 07:19 | PROVIDERS: PCP Nurse Practitioner Family; Visit Provider Nurse Practitioner Family | DX: G47.33 Obstructive sleep apnea (adult) (pediatric) (principal) | CPT/HCPCS: G0399 ==

== ENCOUNTER 2024-01-08 03:16 | Emergency (ER) | payer BC, SELFPAY ==
[2024-01-08] VITALS (13 sets, daily range): BP systolic 149–162; BP diastolic 86–92; PULSE 68–75; RESP 13–18; TEMP 36.6–36.7; O2SAT 95–100; BMI 33.7
--- NOTE | 2024-01-08 03:23 | ED_ITS ---
Discharge Plan Disposition Patient Disposition: Home, Self-Care Prescriptions Prescriptions: New tamsulosin 0.4 mg capsule 0.4 mg PO DAILY Qty: 30 0RF ondansetron HCl 4 mg tablet 4 mg PO Q8H PRN (Reason: nausea and vomiting) 5 Days Qty: 30 0RF No Action (DME) pen needle, diabetic [BD Ultra-Fine Short Pen Needle] 31 gauge x 5/16 needle See Rx Instructions .ROUTE .MEDSUPPLY Qty: 1200 Rx Instructions: As directed betamethasone valerate 0.1 % ointment 1 applic topical DAILY Qty: 45 3RF Rx Instructions: Please apply a blueberry size amount nightly x4 weeks then 2-3 times a week for maintenance (DME) Accu-Chek Gisell Plus test strp Strip See Rx Instructions .ROUTE .MEDSUPPLY Qty: 100 2RF Rx Instructions: As directed (DME) lancets [Accu-Chek Softclix Lancets] Misc See Rx Instructions .ROUTE .MEDSUPPLY Qty: 100 2RF Rx Instructions: As directed Climara Pro 0.045-0.015 mg/24 hr patch weekly 1 patch transdermal WEEKLY Qty: 4 4RF (DME) pen needle, diabetic [BD Adeola 2nd Gen Pen Needle] 32 gauge x 5/32 needle See Rx Instructions .ROUTE .MEDSUPPLY Qty: 50 3RF Rx Instructions: As directed furosemide 20 mg tablet See Rx Instructions .ROUTE .COMPLEX Qty: 30 2RF Dose Instruction: TAKE 1 TABLET BY MOUTH ONCE DAILY NEEDED Rx Instructions: TAKE 1 TABLET BY MOUTH ONCE DAILY NEEDED indomethacin 25 mg capsule 25 mg PO TID Qty: 90 1RF Rx Instructions: administer with food or milk metoprolol tartrate 25 mg tablet See Rx Instructions .ROUTE .COMPLEX Qty: 60 3RF Dose Instruction: TAKE 1 TABLET BY MOUTH TWICE DAILY FOR BLOOD PRESSURE Rx Instructions: TAKE 1 TABLET BY MOUTH TWICE DAILY FOR BLOOD PRESSURE fluconazole 150 mg tablet 150 mg PO Q3D 0 Days Qty: 2 0RF Rx Instructions: may repeat second dose 72 hrs after first dose if symptoms persist Ozempic 1 mg/dose (4 mg/3 mL) pen injector 1 mg SQ WEEKLY Qty: 3 2RF insulin glargine [Lantus Solostar U-100 Insulin] 100 unit/mL (3 mL) insulin pen 54 unit SQ HS Qty: 3 3RF atorvastatin 20 mg tablet 20 mg PO HS 30 Days Qty: 30 2RF Referrals Follow up/Referrals: Rosa Kam APRN [Primary Care Provider] - See instructions Rocco Esparza MD [Staff Physician] - See instructions Activity Restrictions/Add. Instructions Additional Instructions/Restrictions: Please take Tylenol and ibuprofen and Zofran as needed for pain and nausea. Please take Flomax. Please take your previously prescribed hydrocodone as needed for breakthrough pain. If you develop any signs of systemic infection such as fever, chills, or your pain becomes uncontrollable, please return immediately to the emergency department. Clinical Impressions Clinical Impression: Hydronephrosis with ureteral calculus, Acute flank pain Print Language Print Language: Colombian Discharge ED Provider: Ricardo Cordoba General Adult HPI <Flaco Lux MD - Last Filed: 01/08/24 06:47> General Chief complaint: PAIN Stated complaint: L side back pain Time Seen by Provider: 01/08/24 03:22 History of Present Illness HPI narrative: 53-year-old female with history of prior kidney stone presents for left-sided flank pain. She reports it feels exactly like the last time she had a kidney stone. She denies any urinary symptoms such as dysuria, urgency frequency etc. She denies any fever at home. She reports that symptoms started a couple of hours ago. Her last episode was several years ago. Related Data Home Medications ?Medication ?Instructions ?Recorded ?Confirmed pen needle, diabetic 31 gauge x #1,200 ea 03/05/22 11/16/2310/07 (BD Ultra-Fine Short Pen Needle) Previous Rx's ?Medication ?Instructions ?Recorded betamethasone valerate 0.1 % 1 applic topical DAILY #45 grams 04/02/23 topical ointment blood sugar diagnostic (Accu-Chek #100 ea 05/27/23 Gisell Plus test strips) lancets (Accu-Chek Softclix #100 ea 05/27/23 Lancets) estradiol 0.045 mg-levonorgestrel 1 patch transdermal WEEKLY #4 ea 09/30/23 0.015 mg/24hr weekly transderm patch (Climara Pro) pen needle, diabetic 32 gauge x #50 ea 10/07/23 (BD Adeola 2nd Gen Pen Needle) furosemide 20 mg tablet See Rx Instructions .Route 10/26/23 .COMPLEX #30 tabs indomethacin 25 mg capsule 25 mg PO TID #90 caps 11/05/23 metoprolol tartrate 25 mg tablet See Rx Instructions .Route 11/16/23 .COMPLEX #60 tabs fluconazole 150 mg tablet 150 mg PO Q3D 2 doses #2 tabs 11/23/23 semaglutide 1 mg/dose (4 mg/3 mL) 1 mg (0.75 mL) SQ WEEKLY #3 mL 12/02/23 subcutaneous pen injector (Ozempic) insulin glargine 100 unit/mL (3 54 unit (0.54 mL) SQ HS #3 mL 12/18/23 mL) subcutaneous pen (Lantus Solostar U-100 Insulin) atorvastatin 20 mg tablet 20 mg PO HS 30 days #30 tabs 12/28/23 ondansetron HCl 4 mg tablet 4 mg PO Q8H PRN nausea and 01/08/24 vomiting 5 days #30 tabs tamsulosin 0.4 mg capsule 0.4 mg PO DAILY #30 caps 01/08/24 Allergies Allergy/AdvReac Type Severity Reaction Status Date / Time No Known Allergies Allergy Verified 11/16/23 08:12 PFS <Flaco Lux MD - Last Filed: 01/08/24 06:47> [facility] Disclaimer: The information contained in this section may have been updated after the patient was seen, as this information can be updated by other users. Medical History Hyperlipidemia Hypertension Diabetes mellitus Surgical History History of endometrial ablation H/O oophorectomy Family History Mother Diabetes Father Diabetes Stroke Grandmother Diabetes Heart attack Social History Smoking Status: Never smoker second hand exposure: No alcohol intake: never substance use type: denies use current occupational status: employed Travel in the last 8 weeks: None household members: spouse housing: house current occupation: registrar current occupational exposures/hazards: No caffeine: No <Flaco Lux MD - Last Filed: 01/08/24 06:47> ROS Obtained: Yes All systems reviewed & no additional complaints except as documented Physical Exam <Flaco Lux MD - Last Filed: 01/08/24 06:47> General General appearance: alert Comment: Uncomfortable appearing Head Head exam: atraumatic and normocephalic Eye Eye exam: Present normal appearance, PERRL and EOMI ENT ENT exam: Present normal oropharynx and normal external ear exam Neck Neck exam: Present normal inspection and full ROM Chest Chest inspection: Present normal inspection and symmetric chest wall rise; Absent tenderness Respiratory Respiratory exam: Present normal lung sounds bilaterally; Absent respiratory distress Cardiovascular Cardiovascular exam: Present regular rate and normal rhythm Abdominal Exam Abdominal exam: Present soft; Absent distention, tenderness or guarding Extremities Exam Extremities exam: Present normal inspection; Absent edema or joint swelling Back Exam Back exam: Present normal inspection and CVA tenderness (L) Neurological Exam Neurological exam: Present alert and oriented X3; Absent motor sensory deficit Psychiatric Psychiatric exam: Present normal affect and normal mood Skin Skin exam: Present warm, dry and normal color Lymphatic Lymphatic Findings: no adenopathy Medical Decision Making <Flaco Lux MD - Last Filed: 01/08/24 06:47> Medical Records Medical records reviewed: Yes I reviewed the patient's medical records. Rad Inquiry Pt receiving controlled substance: No Rad was queried for this patient: No Vital Signs: 01/08/24 03:17 01/08/24 03:29 01/08/24 04:30 Temperature 97.9 F 97.9 F Temperature Source Oral Oral Pulse Rate 70 68 Pulse Rate [Right] 75 Respiratory Rate 16 18 Blood Pressure 151/92 H 151/92 H Blood Pressure [Right Arm] 162/87 H Blood Pressure Mean [Right Arm] 112 02 Sat by Pulse Oximetry 98 97 100 Oxygen Delivery Method Room Air Room Air 01/08/24 05:00 01/08/24 07:43 01/08/24 08:00 Temperature Temperature Source Pulse Rate 70 72 75 Pulse Rate [Right] Respiratory Rate Blood Pressure 153/86 H 149/86 H 149/86 H Blood Pressure [Right Arm] Blood Pressure Mean [Right Arm] 02 Sat by Pulse Oximetry 98 98 97 Oxygen Delivery Method Room Air 01/08/24 08:30 01/08/24 08:50 Temperature Temperature Source Pulse Rate 72 74 Pulse Rate [Right] Respiratory Rate Blood Pressure 152/92 H Blood Pressure [Right Arm] Blood Pressure Mean [Right Arm] 02 Sat by Pulse Oximetry 96 97 Oxygen Delivery Method Room Air Lab Data Lab results reviewed: Yes I reviewed the patient's lab results. Lab Results 01/08/24 03:31: WBC 8.6, RBC 4.37, Hgb 13.3, Hct 40.0, MCV 91.7, MCH 30.5, MCHC 33.2, RDW 14.2, Plt Count 222, MPV 8.9, Neut % (Auto) 83.4 H, Lymph % (Auto) 10.5, [place] % (Auto) 4.2, Eos % (Auto) 1.6, Baso % (Auto) 0.3, Neut # (Auto) 7.2, Lymph # (Auto) 0.9, [place] # (Auto) 0.4, Eos # (Auto) 0.1, Baso # (Auto) 0.0, Sodium 136, Potassium 4.3, Chloride 105, Carbon Dioxide 26, Anion Gap 9.3, BUN 16, Creatinine 1.30 H, Estimated Creat Clear 72, Estimated GFR 43 L, Est GFR ( Amer) 52 L, Glucose 106 H, Calcium 8.8, Total Bilirubin 0.7, AST 38 H, ALT 28, Alkaline Phosphatase 84, Total Protein 6.5, Albumin 3.7, Globulin 2.8, Albumin/Globulin Ratio 1.3 01/08/24 04:15: Urine Color Yellow, Urine Appearance Clear, Urine pH 6.0, Ur Specific [place] >= 1.030, Urine Protein Trace, Urine Glucose (UA) Negative, Urine Ketones Trace, Urine Blood 3+, Urine Nitrate Negative, Urine Bilirubin Negative, Urine Urobilinogen 1.0, Ur Leukocyte Esterase 1+ A, Urine RBC 3-5, Urine WBC 3-5, Ur Squamous Epith Cells 5-10, Urine Bacteria 1+, Urine Mucus 1+ 01/08/24 03:31 01/08/24 03:31 Orders (Tests/Meds): ED MEDICATIONS Generic Name Dose Route Start Last Admin Trade Name Freq PRN Reason Stop Dose Admin Ceftriaxone Sodium 2 gm/ 100 mls @ 200 mls/hr 01/08/24 09:27 Sodium Chloride IV 01/08/24 09:56 ONCE ONE Discontinued Medications Generic Name Dose Route Start Last Admin Trade Name Freq PRN Reason Stop Dose Admin Acetaminophen 1,000 mg 01/08/24 05:20 01/08/24 05:24 Acetaminophen 1,000mg/100ml Vial IV 01/08/24 05:21 1,000 mg ONCE ONE Administration Hydromorphone HCl 0.5 mg 01/08/24 08:52 01/08/24 08:55 Hydromorphone 2mg/Ml Syringe IV 01/08/24 08:53 0.5 mg ONCE ONE Administration Sodium Chloride 1,000 mls @ 999 mls/hr 01/08/24 03:30 01/08/24 03:34 Sod Chlor 0.9% 1000ml Bag IV 01/08/24 04:30 999 mls/hr .Q1H1M LONNIE Administration Ketorolac Tromethamine 30 mg 01/08/24 03:23 01/08/24 03:34 Ketorolac 30mg/Ml Vial IV 01/08/24 03:24 30 mg ONCE ONE Administration Ondansetron HCl 4 mg 01/08/24 03:23 01/08/24 03:34 Ondansetron 4mg/2ml Vial IV 01/08/24 03:24 4 mg ONCE ONE Administration Ondansetron HCl 4 mg 01/08/24 08:52 01/08/24 08:54 Ondansetron 4mg/2ml Vial IV 01/08/24 08:53 4 mg ONCE ONE Administration Oxycodone HCl 5 mg 01/08/24 07:21 01/08/24 07:27 Oxycodone 5mg Immediate Release Tablet PO 01/08/24 07:22 5 mg ONCE ONE Administration Tamsulosin HCl 0.4 mg 01/08/24 05:15 01/08/24 05:24 Tamsulosin 0.4mg Capsule PO 01/08/24 05:16 0.4 mg ONCE ONE Administration ORDERS Category Date Time Status CT abdomen pelvis wo con Stat Cat Scan 01/08/24 03:23 Completed CBC w/Auto Diff [Complete Blood Count Auto Diff] Stat Lab 01/08/24 03:31 Completed CMP [Comprehensive Metabolic Panel] Stat Lab 01/08/24 03:31 Completed UA [Urinalysis and Microscopic] Stat Lab 01/08/24 04:15 Completed Urine Culture Stat Micro 01/08/24 04:15 Received Medical Decision Narrative: 53-year-old female with history of prior kidney stone presents for left flank pain times a couple of hours. History was obtained via interactive discussion with patient, chart review. On arrival, patient is [afebrile, hemodynamically stable, satting appropriately, alert, oriented x4, GCS 15], moving all extremities spontaneously. Full physical exam performed and significant for left flank tenderness Differential includes but is not limited to kidney stone, UTI, pyelonephritis, aortic pathology, diverticulitis. Patient was given 1 L IV fluid bolus, IV Zofran, IV Tylenol, IV Toradol for symptomatic management and correction of underlying abnormalities. Workup initiated including CBC CMP urinalysis CT Noncon of the abdomen and pelvis. On re-evaluation, patient [remains afebrile, HD stable.] She had some vomiting but improved with Zofran. Laboratory workup independently interpreted by me and significant for no significant leukocytosis, renal function near baseline, no significant electrolyte derangements. Urine shows 3-5 RBCs, 3-5 WBCs, negative nitrate, 1+ bacteria, 5-10 squames. Imaging independently interpreted by me and significant for proximal left ureteral stone approximately 4.8 mm in transverse diameter. See radiology read for full review of final results. Transfer for urology intervention was considered, but deemed unnecessary due to pain controlled, no definitive urinary tract infection on urinalysis. Given patient history, exam and workup, patient's presentation most likely represents acute left-sided obstructing ureterolithiasis. The urine does have 3-5 WBCs, but my typical cutoff for UTI is 5-10. Patient is also nitrate negative and has 5-10 squames and mucus suggesting some contamination. I communicated these findings with patient. She was given strict return precautions. She was discharged with prescription for Flomax and oxycodone given instructions regarding symptomatic care. She will follow-up with urology. <Ricardo Cordoba MD - Last Filed: 01/08/24 09:30> Vital Signs: 01/08/24 03:17 01/08/24 03:29 01/08/24 04:30 Temperature 97.9 F 97.9 F Temperature Source Oral Oral Pulse Rate 70 68 Pulse Rate [Right] 75 Respiratory Rate 16 18 Blood Pressure 151/92 H 151/92 H Blood Pressure [Right Arm] 162/87 H Blood Pressure Mean [Right Arm] 112 02 Sat by Pulse Oximetry 98 97 100 Oxygen Delivery Method Room Air Room Air 01/08/24 05:00 01/08/24 07:43 01/08/24 08:00 Temperature Temperature Source Pulse Rate 70 72 75 Pulse Rate [Right] Respiratory Rate Blood Pressure 153/86 H 149/86 H 149/86 H Blood Pressure [Right Arm] Blood Pressure Mean [Right Arm] 02 Sat by Pulse Oximetry 98 98 97 Oxygen Delivery Method Room Air 01/08/24 08:30 01/08/24 08:50 Temperature Temperature Source Pulse Rate 72 74 Pulse Rate [Right] Respiratory Rate Blood Pressure 152/92 H Blood Pressure [Right Arm] Blood Pressure Mean [Right Arm] 02 Sat by Pulse Oximetry 96 97 Oxygen Delivery Method Room Air Lab Data Lab Results 01/08/24 03:31: WBC 8.6, RBC 4.37, Hgb 13.3, Hct 40.0, MCV 91.7, MCH 30.5, MCHC 33.2, RDW 14.2, Plt Count 222, MPV 8.9, Neut % (Auto) 83.4 H, Lymph % (Auto) 10.5, [place] % (Auto) 4.2, Eos % (Auto) 1.6, Baso % (Auto) 0.3, Neut # (Auto) 7.2, Lymph # (Auto) 0.9, [place] # (Auto) 0.4, Eos # (Auto) 0.1, Baso # (Auto) 0.0, Sodium 136, Potassium 4.3, Chloride 105, Carbon Dioxide 26, Anion Gap 9.3, BUN 16, Creatinine 1.30 H, Estimated Creat Clear 72, Estimated GFR 43 L, Est GFR ( Amer) 52 L, Glucose 106 H, Calcium 8.8, Total Bilirubin 0.7, AST 38 H, ALT 28, Alkaline Phosphatase 84, Total Protein 6.5, Albumin 3.7, Globulin 2.8, Albumin/Globulin Ratio 1.3 01/08/24 04:15: Urine Color Yellow, Urine Appearance Clear, Urine pH 6.0, Ur Specific [place] >= 1.030, Urine Protein Trace, Urine Glucose (UA) Negative, Urine Ketones Trace, Urine Blood 3+, Urine Nitrate Negative, Urine Bilirubin Negative, Urine Urobilinogen 1.0, Ur Leukocyte Esterase 1+ A, Urine RBC 3-5, Urine WBC 3-5, Ur Squamous Epith Cells 5-10, Urine Bacteria 1+, Urine Mucus 1+ Orders (Tests/Meds): ED MEDICATIONS Generic Name Dose Route Start Last Admin Trade Name Rosalinda PRN Reason Stop Dose Admin Ceftriaxone Sodium 2 gm/ 100 mls @ 200 mls/hr 01/08/24 09:27 Sodium Chloride IV 01/08/24 09:56 ONCE ONE Discontinued Medications Generic Name Dose Route Start Last Admin Trade Name Rosalinda PRN Reason Stop Dose Admin Acetaminophen 1,000 mg 01/08/24 05:20 01/08/24 05:24 Acetaminophen 1,000mg/100ml Vial IV 01/08/24 05:21 1,000 mg ONCE ONE Administration Hydromorphone HCl 0.5 mg 01/08/24 08:52 01/08/24 08:55 Hydromorphone 2mg/Ml Syringe IV 01/08/24 08:53 0.5 mg ONCE ONE Administration Sodium Chloride 1,000 mls @ 999 mls/hr 01/08/24 03:30 01/08/24 03:34 Sod Chlor 0.9% 1000ml Bag IV 01/08/24 04:30 999 mls/hr .Q1H1M LONNIE Administration Ketorolac Tromethamine 30 mg 01/08/24 03:23 01/08/24 03:34 Ketorolac 30mg/Ml Vial IV 01/08/24 03:24 30 mg ONCE ONE Administration Ondansetron HCl 4 mg 01/08/24 03:23 01/08/24 03:34 Ondansetron 4mg/2ml Vial IV 01/08/24 03:24 4 mg ONCE ONE Administration Ondansetron HCl 4 mg 01/08/24 08:52 01/08/24 08:54 Ondansetron 4mg/2ml Vial IV 01/08/24 08:53 4 mg ONCE ONE Administration Oxycodone HCl 5 mg 01/08/24 07:21 01/08/24 07:27 Oxycodone 5mg Immediate Release Tablet PO 01/08/24 07:22 5 mg ONCE ONE Administration Tamsulosin HCl 0.4 mg 01/08/24 05:15 01/08/24 05:24 Tamsulosin 0.4mg Capsule PO 01/08/24 05:16 0.4 mg ONCE ONE Administration ORDERS Category Date Time Status CT abdomen pelvis wo con Stat Cat Scan 01/08/24 03:23 Completed CBC w/Auto Diff [Complete Blood Count Auto Diff] Stat Lab 01/08/24 03:31 Completed CMP [Comprehensive Metabolic Panel] Stat Lab 01/08/24 03:31 Completed UA [Urinalysis and Microscopic] Stat Lab 01/08/24 04:15 Completed Urine Culture Stat Micro 01/08/24 04:15 Received Medical Decision Narrative: 53-year-old female with history of prior kidney stone presents for left flank pain times a couple of hours. History was obtained via interactive discussion with patient, chart review. On arrival, patient is afebrile, hemodynamically stable, satting appropriately, alert, oriented x4, GCS 15, moving all extremities spontaneously. Full physical exam performed and significant for left flank tenderness Differential includes but is not limited to kidney stone, UTI, pyelonephritis, aortic pathology, diverticulitis. Patient was given 1 L IV fluid bolus, IV Zofran, IV Tylenol, IV Toradol for symptomatic management and correction of underlying abnormalities. Workup initiated including CBC CMP urinalysis CT Noncon of the abdomen and pelvis. On re-evaluation, patient remains afebrile, HD stable. She had some vomiting but improved with Zofran. Laboratory workup independently interpreted by me and significant for no significant leukocytosis, renal function near baseline, no significant electrolyte derangements. Urine shows 3-5 RBCs, 3-5 WBCs, negative nitrate, 1+ bacteria, 5-10 squames. Imaging independently interpreted by me and significant for proximal left ureteral stone approximately 4.8 mm in transverse diameter. See radiology read for full review of final results. Transfer for urology intervention was considered, but deemed unnecessary due to pain controlled, no definitive urinary tract infection on urinalysis. Given patient history, exam and workup, patient's presentation most likely represents acute left-sided obstructing ureterolithiasis. The urine does have 3-5 WBCs, but my typical cutoff for UTI is 5-10. Patient is also nitrate negative and has 5-10 squames and mucus suggesting some contamination. I communicated these findings with patient. She was given strict return precautions. She was discharged with prescription for Flomax and oxycodone given instructions regarding symptomatic care. She will follow-up with urology. Beryl: I assumed primary responsibility for this patient after signout from previous physician. I agree with the above. Patient has a ride, however is ride and he rides a bus route. Patient does not have ability to go home until he is done with his bus route. I just kept eyes on patient prior to being discharged and sent home with . She was complaining of mild to moderate pain again, 5 mg oxycodone was administered here given Toradol and acetaminophen given just a couple hours ago. Patient's pain still crescendo in nature. Because patient has mild MARIA E with creatinine 1.3 up from baseline of 1.1, proximal left-sided stone with moderate hydronephrosis, patient with intractable pain, deemed appropriate for transfer. [facility] contacted, have no beds or urology available. [facility] was contacted and case was discussed at length, patient graciously accepted for transfer under Dr. So and Dr. Pickard. Because patient high risk for clinical decompensation if discharged, deemed appropriate for transfer and inpatient admission. Results were relayed to patient who voiced understanding and patient was agreeable to transfer, inpatient admission, and management. Procedures <Flaco Lux MD - Last Filed: 01/08/24 06:47> Risk/Benefits of Procedure(s) Were Explained: Yes Critical Care <Flaco Lux MD - Last Filed: 01/08/24 06:47> Critical Care Time Critical Care Time: No <Ricardo Cordoba MD - Last Filed: 01/08/24 09:30> Critical Care Time Critical Care Time: Yes (uro) Attestation: On 01/08/24, the high probability of a clinically significant, sudden or life threatening deterioration of the following system(s) required my full and direct attention, intervention and personal management. The time I documented below is in addition to time spent performing reported procedures but includes the following listed in this critical care notation. Total Time Total Critical Care Time: 60
--- NOTE | 2024-01-08 03:23 | CT_ITS ---
PROCEDURE INFORMATION: Exam: CT Abdomen And Pelvis Without Contrast Exam date and time: 01/08/2024 3:49 AM Age: 53 years old Clinical indication: Abdominal pain; Flank; Left; Additional info: Left flank pain TECHNIQUE: Imaging protocol: Computed tomography of the abdomen and pelvis without contrast. Radiation optimization: All CT scans at this facility use at least one of these dose optimization techniques: automated exposure control; mA and/or kV adjustment per patient size (includes targeted exams where dose is matched to clinical indication); or iterative reconstruction. COMPARISON: ABDPELW/O CT ABD PELVIS W/O CONTRAST 05/04/2017 7:03 PM FINDINGS: Liver: Normal. No mass. Gallbladder and biliary ducts: Normal. No calcified stones. No ductal dilation. Pancreas: Normal. No ductal dilation. Spleen: Normal. No splenomegaly. Adrenal glands: Normal. No mass. Kidneys and ureters: There is a 6 mm stone in the proximal left ureter with moderate left-sided hydronephrosis. Atrophy of the left kidney is noted. Additional intrarenal stone measuring 4 mm is present. Stomach and bowel: Unremarkable. No obstruction. No mucosal thickening. Appendix: No evidence of appendicitis. Intraperitoneal space: Unremarkable. No free air. No significant fluid collection. Vasculature: Unremarkable. No abdominal aortic aneurysm. Lymph nodes: Unremarkable. No enlarged lymph nodes. Urinary bladder: Unremarkable as visualized. Reproductive: Unremarkable as visualized. Bones/joints: Unremarkable. No acute fracture. Soft tissues: Unremarkable. IMPRESSION: 6 mm stone in the proximal left ureter with moderate left-sided hydronephrosis. Atrophy of the left kidney is noted. Additional intrarenal stone measuring 4 mm is present.
[2024-01-08] MEDS: KETOROLAC 30MG/ML VIAL 30 MG IV (03:34)
[2024-01-08] MEDS: ONDANSETRON 4MG/2ML VIAL 4 MG IV ×2 (03:34→08:54)
[2024-01-08] MEDS: 0.9 % SODIUM CHLORIDE 1000ML 1,000 ML 999 ML IV (03:34)
[2024-01-08 03:44] LABS: Basophils % 0.3 % (0.1-2.0); Eosinophils # 0.1 K/mm3 (0.0-0.4); Eosinophils % 1.6 % (0.1-12.0); Hemoglobin 13.3 g/dL (12.2-16.2); Lymphocytes # 0.9 K/mm3 (0.7-4.5); Lymphocytes % 10.5 % (10-50); Mean Corpuscular HGB Conc 33.2 g/dL (31.8-35.4); Mean Corpuscular Hemoglobin 30.5 pg (27.0-31.2); Mean Corpuscular Volume 91.7 fl (81-99); Mean Platelet Volume 8.9 fl (7.4-10.4); Monocytes # 0.4 K/mm3 (0.1-1.0); Monocytes % 4.2 % (1.7-9.3); Neutrophils # 7.2 K/mm3 (1.8-7.8); Neutrophils % 83.4 % (37.0-80.0); Platelet Count 222 K/mm3 (142-424); Red Blood Count 4.37 M/mm3 (4.20-5.40); Red Cell Distribution Width 14.2 % (11.5-17.5); White Blood Count 8.6 K/mm3 (4.8-10.8)
[2024-01-08 03:52] LABS: Alanine Aminotransferase 28 U/L (12-78); Albumin Level 3.7 g/dl (3.5-5.0); Albumin/Globulin Ratio 1.3 (1.1-1.8); Alkaline Phosphatase 84 U/L (38-126); Anion Gap 9.3 mEq/L (5-15); Aspartate Amino Transferase 38 U/L (14-36); Bilirubin,Total 0.7 mg/dl (0.2-1.3); Blood Urea Nitrogen 16 mg/dl (7-17); Calcium 8.8 mg/dl (8.4-10.2); Carbon Dioxide 26 mmol/L (22.0-30.0); Chloride 105 mmol/L (98-107); Creatinine Clearance Estimated 72 mL/min (50-200); Estimated Glomerular Filt Rate 43 ml/min (>60); GFR (African American) 52 ML/MIN (>60); Globulin 2.8 g/dL (1.3-3.2); Glucose 106 mg/dl (74-100); Potassium 4.3 mmoL/L (3.5-5.1); Sodium 136 mmol/L (136-145); Total Protein,Serum 6.5 g/dl (6.3-8.2)
[2024-01-08 04:16] LABS: Microscopic, Urine URINE MICROSCOPIC (MICROSCOPIC)
[2024-01-08 04:18] LABS: Appearance,Urine CLEAR (Clear); Blood, Urine 3+ (Negative); Color,Urine YELLOW (Yellow); Glucose,Urine (UA) Negative (Negative); Ketones,Urine TRACE (Negative); Leukocyte Esterase,Urine 1+ (Negative); Nitrate,Urine Negative (Negative); Protein,Urine TRACE (Negative); Specific Gravity, Urine >= 1.030 (1.005-1.030)
[2024-01-08 04:23] LABS: Bilirubin,Urine Negative (Negative)
[2024-01-08 04:28] LABS: Bacteria,Urine 1+ /lpf; Mucus,Urine 1+ /lpf
--- NOTE | 2024-01-08 05:23 | PC.NURSE ---
rounded on patient, call light within reach, patient given pillow and lights turned down. Pt. c/o increase in pain MD informed
[2024-01-08] MEDS: ACETAMINOPHEN 1,000MG/100ML VIAL 1000 MG IV (05:24)
[2024-01-08] MEDS: TAMSULOSIN 0.4MG CAPSULE 0.4 MG PO (05:24)
[2024-01-08] MEDS: OXYCODONE 5MG IMMEDIATE RELEASE TABLET 5 MG PO (07:27)
[2024-01-08] MEDS: HYDROMORPHONE 2MG/ML SYRINGE 0.5 MG IV (08:55)
--- NOTE | 2024-01-08 08:55 | PC.NURSE ---
spoke with [facility]. they advised they will check if they have someone supervisor telephone answering service and will reach back out
--- NOTE | 2024-01-08 08:58 | PC.NURSE ---
pt and family updated. they advise if [facility] calls back with an opening at [facility] or [facility] they will go but do not want [facility]
--- NOTE | 2024-01-08 09:18 | PC.NURSE ---
o/p with at this time.
[2024-01-08] MEDS: CEFTRIAXONE SODIUM 2 GM in 0.9 % SODIUM CHLORIDE 100 ML IV (09:48)
--- NOTE | 2024-01-08 10:35 | PC.NURSE ---
calling [facility] for update on bed.
== END 2024-01-08 13:22 | disposition home or self-care (01) ==
PROVIDERS: Emergency Medicine; Emergency Provider Emergency Medicine; PCP Nurse Practitioner Family
DX: N13.0 Hydronephrosis with ureteropelvic junction obstruction (principal); R10.32 Left lower quadrant pain; M54.59 Other low back pain; B96.89 Other specified bacterial agents as the cause of diseases classified elsewhere; I10 Essential (primary) hypertension; E78.5 Hyperlipidemia, unspecified; E11.9 Type 2 diabetes mellitus without complications; Z79.4 Long term (current) use of insulin; Z79.85 Long-term (current) use of injectable non-insulin antidiabetic drugs
CPT/HCPCS: 74176; 80053; 81001; 85025; 87086; 96361; 96365; 96375; 96376; 99285; J0131; J0696; J1170; J1885; J2405; J7030

== ENCOUNTER 2024-03-29 09:36 | Outpatient (CLI) | payer BC, SELFPAY ==
--- NOTE | 2024-03-29 09:36 | MM_ITS ---
PROCEDURE INFORMATION: Exam: MG Bilateral Screening 3D Mammography Exam date and time: 03/29/2024 9:22 AM Age: 54 years old Clinical indication: Screening exam. TECHNIQUE: Imaging protocol: Bilateral Screening tomosynthesis and 2D mammography including computer-aided detection (CAD) when performed. COMPARISON: 1. MG MM DIG SCREENING MAMM BI W/CAD 03/23/2023 4:10 PM 2. MG MM DIG SCREENING MAMM BI W/CAD 03/14/2022 3:57 PM FINDINGS: MAMMOGRAPHY: Breast composition: There are scattered areas of fibroglandular density. Mass: Masses measuring 1.0 and 0.8 cm in the upper-outer right breast at middle to posterior depth, respectively. Architectural distortion: None. Calcifications: No suspicious calcifications. Asymmetric density: None. Skin thickening: None. Axillary adenopathy: None. IMPRESSION: Right breast masses. Recommend further evaluation with right breast ultrasound. ASSESSMENT: BI-RADS Category 0: Incomplete- Need Additional Imaging Evaluation.
== END 2024-03-29 23:59 | disposition home or self-care (01) ==
LOC: RAD 09:36
PROVIDERS: PCP Nurse Practitioner Family; Visit Provider Family Medicine
DX: Z12.31 Encounter for screening mammogram for malignant neoplasm of breast (principal)
CPT/HCPCS: 77063; 77067

== ENCOUNTER 2024-04-08 10:49 | Outpatient (CLI) | payer BC, SELFPAY ==
--- NOTE | 2024-04-08 12:42 | US_ITS ---
PROCEDURE INFORMATION: Exam: US Right Breast, Complete Exam date and time: 04/08/2024 12:47 PM Age: 54 years old Clinical indication: Recall on the basis of screening mammogram 03/29/2024 for further evaluation of masses measuring 1.0 and 0.8 cm in the upper-outer right breast at middle to posterior depth, respectively. TECHNIQUE: Imaging protocol: Complete ultrasound of all four quadrants of the right breast and the retroareolar regions, including ultrasound of the axilla when performed. COMPARISON: MG MM DIG SCREENING MAMM BI W/CAD 03/29/2024 9:22 AM FINDINGS: ULTRASOUND: Breast ultrasound findings: Right sonography, all 4 quadrants, retroareolar and the axilla. Intramammary lymph nodes, noted at 10 o'clock 9 cm from the nipple measuring 0.6 x 1.1 x 0.6 cm (this is marked #1 suggests increased Doppler flow though the central fatty hilum is maintained and there is no cortical thickening) and measuring 1.1 x 0.5 x 0 7 cm (this is marked #2 and appears sonographically unremarkable). Sonographically unremarkable axillary lymph node. IMPRESSION: See comments Screening detected masses correspond to sonographic intramammary lymph nodes - 1 suggests possible increased flow, thus correlate clinically and suggest follow-up left sonography in 4-6 unless otherwise clinically indicated. ASSESSMENT: BI-RADS Category 3: Probably benign.
== END 2024-04-08 23:59 | disposition home or self-care (01) ==
LOC: RAD 10:50
PROVIDERS: PCP Nurse Practitioner Family; Visit Provider Family Medicine
DX: R92.8 Other abnormal and inconclusive findings on diagnostic imaging of breast (principal)
CPT/HCPCS: 76641

== ENCOUNTER 2024-06-13 16:48 | Outpatient (CLI) | payer BC, SELFPAY ==
[2024-06-13 16:27] LABS: Basophils % 0.8 % (0.1-2.0); Eosinophils # 0.1 K/mm3 (0.0-0.4); Eosinophils % 2.3 % (0.1-12.0); Hematocrit 39.6 % (37.0-47.0); Hemoglobin 12.8 g/dL (12.2-16.2); Lymphocytes # 1.2 K/mm3 (0.7-4.5); Lymphocytes % 23.5 % (10-50); Mean Corpuscular HGB Conc 32.3 g/dL (31.8-35.4); Mean Corpuscular Hemoglobin 28.6 pg (27.0-31.2); Mean Corpuscular Volume 88.4 fl (81-99); Mean Platelet Volume 11.1 fl (7.4-10.4); Monocytes # 0.4 K/mm3 (0.1-1.0); Monocytes % 8.2 % (1.7-9.3); Neutrophils # 3.4 K/mm3 (1.8-7.8); Platelet Count 233 K/mm3 (142-424); Red Blood Count 4.48 M/mm3 (4.20-5.40); Red Cell Distribution Width 13.2 % (11.5-17.5); White Blood Count 5.2 K/mm3 (4.8-10.8)
[2024-06-13 17:14] LABS: Albumin Level 3.7 g/dl (3.5-5.0); Chloride 104 mmol/L (98-107); Sodium 137 mmol/L (136-145)
[2024-06-13 17:15] LABS: Potassium 4.4 mmoL/L (3.5-5.1)
[2024-06-13 17:17] LABS: Alanine Aminotransferase 17 U/L (12-78); Albumin/Globulin Ratio 1.4 (1.1-1.8); Anion Gap 11.4 mEq/L (5-15); Aspartate Amino Transferase 26 U/L (14-36); Blood Urea Nitrogen 11 mg/dl (7-17); Carbon Dioxide 26 mmol/L (22.0-30.0); Estimated Glomerular Filt Rate 52 ml/min (>60); GFR (African American) 62 ML/MIN (>60); Globulin 2.6 g/dL (1.3-3.2); Total Protein,Serum 6.3 g/dl (6.3-8.2)
[2024-06-13 17:18] LABS: Alkaline Phosphatase 98 U/L (38-126); Bilirubin,Total 0.6 mg/dl (0.2-1.3); Calcium 8.6 mg/dl (8.4-10.2); Chol/HDL Ratio 3.6 (1-3.5); Cholesterol 97 mg/dl (140-200); Glucose 57 mg/dl (74-100); HDL Cholesterol 27 mg/dl (40-60); Triglycerides 72 mg/dl (30-150); VLDL Cholesterol 14 mg/dL (0-40)
[2024-06-13 17:33] LABS: Direct LDL Cholesterol 51.92 mg/dL (100-129)
[2024-06-13 17:37] LABS: HIV Combo NEGATIVE (Negative)
[2024-06-13 17:41] LABS: 25-OH Vitamin D, Total 49.6 ng/mL (30-100)
[2024-06-13 18:58] LABS: Hepatitis C Ab Qual. W/ RFX NEGATIVE (Negative)
[2024-06-13 20:59] LABS: Hemoglobin A1C 6.1 % (4.0-6.0)
== END 2024-06-13 23:59 | disposition home or self-care (01) ==
LOC: LAB.DROPOF 16:48
PROVIDERS: PCP Nurse Practitioner Family; Visit Provider Nurse Practitioner Family
DX: E78.5 Hyperlipidemia, unspecified (principal); I10 Essential (primary) hypertension; E11.9 Type 2 diabetes mellitus without complications; Z11.4 Encounter for screening for human immunodeficiency virus [HIV]; Z11.59 Encounter for screening for other viral diseases; Z79.85 Long-term (current) use of injectable non-insulin antidiabetic drugs; Z79.4 Long term (current) use of insulin
CPT/HCPCS: 80053; 80061; 82306; 83036; 84443; 85025; 86803; 87389

== ENCOUNTER 2024-09-30 15:04 | Outpatient (CLI) | payer BC, OTHER, SELFPAY ==
--- OUTSIDE RECORDS SUMMARY | 2024-09-30 15:07 | XMS_ITS | Data Portability ---
Author Organization [facility] Address [address] [place] [id number] Assessment No assessment recorded. Plan of Treatment Reminders Order Date Submit Date Provider Last Modified By Organization Details Last Modified Time Details Appointments None record ed. Lab None record ed. Referral None record ed. Procedures None record ed. Surgeries None record ed. Imaging None record ed. Medication Orders None record ed. Patient TargetsNo targets recorded. Patient InstructionsNo instructions recorded. Reason for Referral None Reported. Problems Name Problem SNOMED Code Status Onset Date Resolution Date Notes Provider Name and Address Organization Details Recorded Time Hypertensive disorder 63003669 Active 2023 Philip Itz adolfo [facility] & [place] 4 09:12:31 Diabetes mellitus 17085804 Active 2023 Philip Itz adolfo [facility] & [place] 4 09:12:37 Sleep apnea 22716912 Active 2023 Philip mata [facility] & [place] 4 09:12:45 Kidney stone 50631761 Active 2023 Philip Itz adolfo [facility] & [place] 4 09:12:53 Insertion of partial upper denture Active 2023 Philip mata [facility] & [place] 4 09:13:12 Problem Notes None recorded. Procedures Surgical History Date Name Laterality Status Provider Name and Address Organization Details Recorded Time Tubal Ligation completed Philip Mobley [facility] & [place] 01/12/2024 09:14:15 procedure on ankle completed Philip Mobley [place] - [facility] - [place] & [place] 01/12/2024 09:14:21 Imaging Results None recorded. Procedure Notes None recorded. Medical Equipment None Reported. Allergies No known drug allergies Medications Name Sig Start Date Stop Date Status Note LastModified by Organization Details LastModified Time betamethaso ne valerate 0.1 % topical ointment 01/11 completed Not Available Not Available Not Available atorvastati n 20 mg tablet active Not Available Not Available Not Available fluconazole 150 mg tablet 01/11 completed Not Available Not Available Not Available Accu-Chek Softclix Lancets active Not Available Not Available Not Available ciprofloxac in 500 mg tablet TAKE 1 TABLET BY MOUTH TWICE DAILY 01/11 completed Not Available Not Available Not Available tamsulosin 0.4 mg capsule TAKE 1 CAPSULE BY MOUTH DAILY 01/11 completed Not Available Not Available Not Available amoxicillin 400 mg/5 mL oral suspension 01/11 completed Not Available Not Available Not Available furosemide 20 mg tablet active Not Available Not Available Not Available ondansetron 4 mg disintegrat ing tablet 01/11 completed Not Available Not Available Not Available Climara Pro 0.045 mg-0.015 mg/24 hr transdermal patch APPLY 1 PATCH TOPICALLY TO THE SKIN WEEKLY active Not Available Not Available No t Available metoprolol tartrate 25 mg tablet active Not Available Not Available No t Available hydrocodone 7.5 mg-acetamin ophen 325 mg/15 mL oral solution 01/11 completed Not Available Not Available Not Available chlorhexidi ne gluconate 0.12 % mouthwash 01/11 completed Not Available Not Available Not Available Lantus Solostar U-100 Insulin 100 unit/mL (3 mL) subcutaneou s pen active Not Available Not Available Not Available Accu-Chek Gisell Plus test strips active Not Available Not Available Not Available Trulicity 1.5 mg/0.5 mL subcutaneou s pen injector 01/11 completed Not Available Not Available Not Available Trulicity 0.75 mg/0.5 mL subcutaneou s pen injector 01/11 completed Not Available Not Available Not Available BD Adeola 2nd Gen Pen Needle 32 gauge x active Not Available Not Available Not Available Ozempic 1 mg/dose (4 mg/3 mL) subcutaneou s pen injector active Not Available Not Available Not Available Ozempic 0.25 mg or 0.5 mg (2 mg/3 mL) subcutaneou s pen injector 01/11 completed Not Available Not Available Not Available Vitals Date Recorded Body height Body mass index (BMI) Body weight Body temperature Provider Name and Address Organization Details Last Updated DateTime 01/12/2024 165.1 cm 33.8 kg/m2 52809.25 g 98 [degF] Philip Mobley [facility] & [place] 01/12/2024 09:10:48 Social History Question Answer Notes LastModified by Organizat ion Details LastModified Time Tobacco Smoking Status Never Smoker Philip mata, [facility] & [place] 01/12/2024 09:14:06 What Is Your Level Of Alcohol Consumption? None [email or web address] Information not available 01/12/2024 Sex: Unknown Functional Status None recorded. Mental Status None recorded. Family History Relationship Description Onset Age of this Age Resolved Age Notes LastModified by Organization Details LastModified Time Mother Sepsis dec Not available 01/12/2024 09:13:25 Brother Myocardial infarction dec [email or web address] Not available 01/11 09:13:36 Father Family history unknown [email or web address] Not available 2023 09:13:59 Medical History No medical history recorded. Gynecological HistoryNo gynecological history recorded. Obstetrics History GPAL:G 0 P 0 0 0 0 Past Encounters Encounter ID Performer Location Encounter Start Date Encounter Closed Date Diagnosis/Indication Diagnosis SNOMED-CT Code Diagnosis ICD10 Code Diagnosis Note [id number] Iraj So Jr, MD [facility] [address] [place] [address] 01/12/2024 08:33:05 01/12/2024 09:33:32 Occlusion of ureter due to calculus 27898145 N13.2 patient with 6 mm left proximal ureteral stone status post left ureterosco py, laser lithotrips y and stent placement. She returns today in follow-up and is doing much better. She is tolerating her stent well her stent was removed today with use of the indwelling string. We discussed measures to decrease her risk for further stone formation. She will return as needed. Patient does have history of gout. Her stone analysis is pending. I will let her know regarding her stone analysis. It is a uric acid stone we will consider prescripti on for allopurino l. Health Concerns Section Related Observation LastModified by Organization Detai ls LastModified Time None Recorded Concern Status LastModified by Organization Details LastModified Time None Recorded Advance Directives Directive None Recorded Payers Insurance Date Sequence Insurance Name Policy Number Policy Nunes Covered Member ID Nunes Member ID Guarantor Name 12/12/2023 1 [place] [id number] Ayesha A Debruler [id number] Ayesha A Debruler 04/07/2024 1 [place] [id number] Ayesha A Debruler [id number] Ayesha A Debruler Notes Date Note Type Note Provider Name and Address Organization Details Recorded Time 01/12/2024 text/html patient is a 53-year-old white female with history of left flank pain due to a 6 mm proximal left ureteral stone. She underwent left ureteroscopy, laser lithotripsy and stent placement 4 days ago at [facility]. She returns today in follow-up. She states she feels much better. Her stone analysis is pending. She is tolerating her stent well. She was discharged home on the following day after stent placement. Iraj So Jr, MD [address] [place] [address], [address], [place], [address], [place] - [facility] - [place] & [place] 01/12/2024 09:38:05 OBGyn Episode No OBEpisode recorded.
--- NOTE | 2024-09-30 15:30 | US_ITS ---
PROCEDURE INFORMATION: Exam: US Right Breast, Complete Exam date and time: 09/30/2024 3:08 PM Age: 54 years old Clinical indication: 6 month follow-up probable intramammary lymph nodes TECHNIQUE: Imaging protocol: Complete ultrasound of all four quadrants of the right breast and the retroareolar regions, including ultrasound of the axilla when performed. COMPARISON: US BREAST RT COMPLETE 04/08/2024 12:47 PM FINDINGS: ULTRASOUND: Breast ultrasound findings: Sonographic images of the right upper outer quadrant demonstrates 2 fat containing normal-appearing intramammary lymph nodes 6 cm from the nipple measuring 0.8 0.7 cm respectively. Incidental 0.3 cm cyst in the right 1 o'clock axis 7 cm from the nipple. No other solid or cystic masses noted in the remainder of the right breast. No axillary adenopathy. IMPRESSION: No sonographic evidence of malignancy. Annual mammographic screening is recommended in March 2025 unless otherwise clinically indicated. ASSESSMENT: BI-RADS Category 1: Negative.
== END 2024-09-30 23:59 | disposition home or self-care (01) ==
LOC: RAD 15:05
PROVIDERS: PCP Family Medicine; Visit Provider Family Medicine
DX: R92.8 Other abnormal and inconclusive findings on diagnostic imaging of breast (principal)
CPT/HCPCS: 76641

== ENCOUNTER 2024-10-18 09:03 | Outpatient (CLI) | payer BC, OTHER, SELFPAY ==
[2024-10-18 18:00] LABS: Alanine Aminotransferase 25 U/L (12-78); Albumin Level 3.8 g/dl (3.5-5.0); Albumin/Globulin Ratio 1.5 (1.1-1.8); Alkaline Phosphatase 98 U/L (38-126); Aspartate Amino Transferase 27 U/L (14-36); Bilirubin,Total 0.5 mg/dl (0.2-1.3); Blood Urea Nitrogen 21 mg/dl (7-17); Calcium 8.7 mg/dl (8.4-10.2); Carbon Dioxide 29 mmol/L (22.0-30.0); Chloride 105 mmol/L (98-107); Estimated Glomerular Filt Rate 52 ml/min (>60); GFR (African American) 62 ML/MIN (>60); Globulin 2.5 g/dL (1.3-3.2); Glucose 142 mg/dl (74-100); Sodium 138 mmol/L (136-145); Total Protein,Serum 6.3 g/dl (6.3-8.2)
[2024-10-18 18:45] LABS: Anion Gap 8.6 mEq/L (5-15); Potassium 4.6 mmoL/L (3.5-5.1)
--- OUTSIDE RECORDS SUMMARY | 2024-10-19 10:11 | XMS_ITS | Data Portability ---
Author Organization [facility] Address [address] [place] [id number] Assessment No assessment recorded. Plan of Treatment [...] Address Organization Details Recorded Time Hypertensive disorder 17877757 Active 2023 Philip Itz adolfo [facility] & [place] 4 09:12:31 Diabetes mellitus 18443970 Active 2023 Philip Itz daolfo [facility] & [place] 4 09:12:37 Sleep apnea 20280599 Active 2023 Philip mata [facility] & [place] 4 09:12:45 Kidney stone 70678240 Active 2023 Philip mata [facility] & [place] 4 09:12:53 Insertion of partial upper denture Active 2023 Philip mata [facility] & [place] 4 09:13:12 Problem Notes None recorded. Procedures Surgical History Date Name Laterality Status Provider Name and Address Organization Details Recorded Time Tubal Ligation completed Philip Mobley [facility] & [place] 01/12/2024 09:14:15 procedure on ankle completed Philip Mobley [place] - [facility] - [place] & [place] 01/12/2024 09:14:21 Imaging Results None recorded. Procedure [...] Updated DateTime 01/12/2024 165.1 cm 33.8 kg/m2 32696.25 g 98 [degF] [facility] & [place] 01/12/2024 09:10:48 Social History None recorded. Functional Status Question Answer Note LastModified by Organization D etails LastModified Time What is your level of alcohol consumption? None [email or web address] Information not available 01/12/2024 Mental Status None recorded. Family History Relationship Description Onset Age of this Age Resolved Age Notes LastModified by Organization Details LastModified Time Mother Sepsis dec [email or web address] Not available 01/12/2024 09:13:25 Brother Myocardial infarction dec Not available 01/11 09:13:36 Father Family history unknown [email or web address] Not available 2023 09:13:59 Medical History No medical history recorded. Gynecological HistoryNo gynecological history recorded. Obstetrics History GPAL:G 0 P 0 0 0 0 Past Encounters Encounter ID Performer Location Encounter Start Date Encounter Closed Date Diagnosis/Indication Diagnosis SNOMED-CT Code Diagnosis ICD10 Code Diagnosis Note [id number] Iraj So Jr, MD [facility] Urology [address] [place] [id number] 01/12/2024 08:33:05 01/12/2024 09:33:32 Occlusion of ureter due to calculus 85213278 N13.2 patient with 6 mm left proximal [...] Member ID Guarantor Name 12/12/2023 1 [place] [id number] Ayesha A Debruler [id number] 06 Ayesha A Debruler 04/07/2024 1 [place] [id number] Ayesha A Debruler [id number] Ayesha A Debruler Notes Date Note Type Note Provider Name and Address Organization Details Recorded Time 01/12/2024 text/html patient is a 53-year-old white female with history of left flank pain due to a 6 mm proximal left ureteral stone. She underwent left ureteroscopy, laser lithotripsy and stent [facility]. She returns today in follow-up. She states she feels much better. Her stone analysis is pending. She is tolerating her stent well. She was discharged home on the following day after stent placement. Iraj So Jr, MD [address] [place] [address], [address], [place], [address], [place] - [facility] - [place] & [place] 01/12/2024 09:38:05 OBGyn Episode No OBEpisode recorded.
--- OUTSIDE RECORDS SUMMARY | 2024-10-19 10:11 | XMS_ITS ---
Author Organization Unknown Medications Medication Instructions Effective Dates (start - stop) Status atorvastatin 20 MG Oral Tablet 2 449-33-86U99:00:00.000+00 :00 - Completed dapagliflozin 10 MG Oral Tab let [xiga] 1226-17-32N48:00:00.000+00 :00 - Completed dapagliflozin 10 MG Oral Tab let [xiga] 4721-00-04J52:00:00.000+00 :00 - Completed metoprolol tartrate 25 MG Or al Tablet 9337-25-86G81:00:00.000+00 :00 - Completed atorvastatin 20 MG Oral Tablet 2 080-58-51U76:00:00.000+00 :00 - Completed 3 ML insulin glargine 100 UN T/ML Pen Injector [Basaglar] 3908-28-95H47:00:00.000+00 :00 - Completed 3 ML insulin glargine 100 UN T/ML Pen Injector [Basaglar] 9155-38-18J41:00:00.000+00 :00 - Completed 3 ML insulin glargine 100 UN T/ML Pen Injector [Basaglar] 5186-84-43V00:00:00.000+00 :00 - Completed 3 ML insulin glargine 100 UN T/ML Pen Injector [Basaglar] 8243-26-36P17:00:00.000+00 :00 - Completed 0.5 ML dulaglutide 6 MG/ML Auto-Injector [Trulicity] 5996-22-05S42:00:00.000+00 :00 - Completed - 5343-94-85E12:00 :00.000+00 :00 - Completed metoprolol tartrate 25 MG Or al Tablet 9313-63-49Z83:00:00.000+00 :00 - Completed furosemide 20 MG Oral Tablet 07-27-24:00:00.000+00 :00 - Completed atorvastatin 20 MG Oral Tablet 2 570-33-38O35:00:00.000+00 :00 - Completed 3 ML insulin glargine 100 UN T/ML Pen Injector [Basaglar] 8335-61-56Y62:00:00.000+00 :00 - Completed - 4744-14-18K56:00 :00.000+00 :00 - Completed metoprolol tartrate 25 MG Or al Tablet 9667-99-04A08:00:00.000+00 :00 - Completed atorvastatin 20 MG Oral Tablet 359-80-21U26:00:00.000+00 :00 - Completed lisinopril 5 MG Oral Tablet 2021:00:00.000+00 :00 - Completed metoprolol tartrate 25 MG Or al Tablet 3277-72-94Z80:00:00.000+00 :00 - Completed - 5125-96-67O57:00 :00.000+00 :00 - Completed metformin hydrochloride 500 MG Oral Tablet 2558-16-97O95:00:00.000+00 :00 - Completed metformin hydrochloride 500 MG Oral Tablet 8549-19-34P62:00:00.000+00 :00 - Completed - 8714-75-44P51:00 :00.000+00 :00 - Completed 3 ML insulin glargine 100 UN T/ML Pen Injector [Basaglar] 0309-02-13G21:00:00.000+00 :00 - Completed furosemide 20 MG Oral Tablet 07-28-22:00:00.000+00 :00 - Completed - 5301-38-63I41:00 :00.000+00 :00 - Completed metformin hydrochloride 500 MG Oral Tablet 8367-85-30H81:00:00.000+00 :00 - Completed lisinopril 5 MG Oral Tablet 2022:00:00.000+00 :00 - Completed indomethacin 50 MG Oral Capsule 8359-70-88W17:00:00.000+00 :00 - Completed metoprolol tartrate 25 MG Or al Tablet 3551-87-59I47:00:00.000+00 :00 - Completed metoprolol tartrate 25 MG Or al Tablet 2200-28-18X82:00:00.000+00 :00 - Completed furosemide 20 MG Oral Tablet 07-26-24:00:00.000+00 :00 - Completed lisinopril 2.5 MG Oral Tablet 20 14-01-12:00:00.000+00 :00 - Completed - 8337-97-03F27:00 :00.000+00 :00 - Completed - 6033-58-56P56:00 :00.000+00 :00 - Completed hydrochlorothiazide 25 MG Or al Tablet 1819-75-93E86:00:00.000+00 :00 - Completed - 4066-15-61Q94:00 :00.000+00 :00 - Completed hydrochlorothiazide 25 MG Or al Tablet 2078-38-01W57:00:00.000+00 :00 - Completed - 4289-98-96I97:00 :00.000+00 :00 - Completed fluconazole 150 MG Oral Tablet 2 538-09-39Q73:00:00.000+00 :00 - Completed - 9741-17-14B89:00 :00.000+00 :00 - Completed hydrochlorothiazide 12.5 MG Oral Capsule 4683-44-12G34:00:00.000+00 :00 - Completed - 1973-26-12Q23:00 :00.000+00 :00 - Completed fluconazole 150 MG Oral Tablet 2 939-60-62L76:00:00.000+00 :00 - Completed - 9370-84-39B27:00 :00.000+00 :00 - Completed - 4225-65-08F29:00 :00.000+00 :00 - Completed - 1864-44-77S58:00 :00.000+00 :00 - Completed - 0872-41-46M68:00 :00.000+00 :00 - Completed fluconazole 150 MG Oral Tablet 2 686-10-87H05:00:00.000+00 :00 - Completed hydrochlorothiazide 12.5 MG Oral Capsule 1305-98-07Q28:00:00.000+00 :00 - Completed lisinopril 5 MG Oral Tablet 2021T00:00:00.000+00 :00 - Completed lisinopril 2.5 MG Oral Tablet 15-04-07T00:00:00.000+00 :00 - Completed - 4720-80-13Z22:00 :00.000+00 :00 - Completed Patient Care team information Name Category Status Period Participants - - Proposed period not known -
== END 2024-10-18 23:59 | disposition home or self-care (01) ==
LOC: LAB.DROPOF 10-19 10:10
PROVIDERS: PCP Nurse Practitioner Family; Visit Provider Nurse Practitioner Family
DX: E11.9 Type 2 diabetes mellitus without complications (principal); Z79.85 Long-term (current) use of injectable non-insulin antidiabetic drugs; Z79.4 Long term (current) use of insulin
CPT/HCPCS: 80053

== ENCOUNTER 2025-03-31 09:28 | Outpatient (CLI) | payer BC, OTHER, SELFPAY ==
--- OUTSIDE RECORDS SUMMARY | 2025-03-31 09:32 | XMS_ITS | Continuity of Care Document ---
Author Organization [employer], [facility] Address [address] [place] [address] Assessment No assessment recorded. Plan of Treatment Reminders Order Date Submit Date Provider Last Modified By Organization Details Last Modified Time Details Appointments None recorded. Lab None recorded. Referral None recorded. Procedures None recorded. Surgeries None recorded. Imaging None recorded. Medication Orders Bactrim DS 800 mg-160 mg tablet 025 025 [facility], [address] [place], [address], 05:01:28 Patient TargetsNo targets recorded. Patient Instructions Encounter Date Encounter Id Patient Instructions Last Modified By Organization Details Last Modified Time 02/02/2025 [id number] Antibiotics as prescribed. Warm moist compresses 2-3 times a day. Avoid picking or scratching area, do not shave in this area. F/u in 3 days if not improved. Recheck in 5 days. [email or web address] Not available 02/02/2025 13:42:40 Plan of care discussed with patient/guardian who voiced understanding. [email or web address] Not available 02/02/2025 13:42:46 Reason for Referral None Reported. Problems Name Problem SNOMED Code Status Onset Date Resolution Date Notes Provider Name and Address Organization Details Recorded Time Dysmenor tala 706110485 Completed 201406/06/2015 Not Available [facility] 21:25:42 Right lower quadrant pain 725023419 Completed 201508/13/2015 Problem Code: 789.03; Problem Code Type: ICD-9; Not Available [facility] 2 21:25:43 Acute vaginiti s 55343304 Completed 201511/07/2015 Problem Code: N76.0; Problem Code Type: ICD-10; Not Available [facility] 2 21:25:42 Vaginiti s and vulvovag initis Completed 201511/07/2015 Problem Code: 616.10; Problem Code Type: ICD-9; Not Available [facility] 2 21:25:43 Type 2 diabetes mellitus without complica tion 380873724 Active 2020 Not Available [facility] 21:25:42 Obesity 696156666 Active 2020 Not Available [facility] 21:25:42 Mixed hyperlip idemia 597106375 Active 2020 Problem Code: E78.2; Problem Code Type: ICD-10; Not Available [facility] 21:25:42 Hyperten sive disorder 15848348 Active 2020 Problem Code: I10; Problem Code Type: ICD-10; Not Available [facility] 21:25:42 Intertri go 00268951 Active 2021 Problem Code: L30.4; Problem Code Type: ICD-10; Not Available [facility] 21:25:42 Acute maxillar y sinusiti s 37566828 Active 2021 Problem Code: J01.00; Problem Code Type: ICD-10; Not Available [facility] 2 21:25:42 Acute non-supp urative serous otitis media 457873811 Active 2021 Problem Code: H65.01; Problem Code Type: ICD-10; Not Available [facility] 21:25:42 Problem Notes None recorded. Medical Equipment None Reported. Allergies No known drug allergies Medications Name Sig Start Date Stop Date Status Note LastModified by Organization Details LastModified Time metformin 500 mg tablet 1 tablet twice a day 2020 active Not Available Not Available Not Avai lable atorvastati n 10 mg tablet Take 1 tablet(s) by mouth daily 2013 active Not Available Not Available Not Avai lable Terazol 3 80 mg vaginal suppository Insert 1 supposito ry(s) in vagina at bedtime for 3 days 11/25 completed Not Available Not Available Not Available CombiPatch 0.05 mg-0.14 mg/24 hr transdermal APPLY 1 PATCH TOPICALLY 2 TIMES PER WEEK active Not Available Not Available No t Available fluconazole 150 mg tablet TAKE 1 TABLET BY MOUTH EVERY 3 DAYS FOR 2 DOSES. MAY REPEAT SECOND DOSE 72 HOURS AFTER FOR 1 DOSE IF SYMPTOMS PERSIST 02/02 completed Not Available Not Available Not Available metoprolol succinate ER 50 mg tablet,exte nded release 24 hr 2021 active Not Available Not Available Not Avai lable fluconazole 200 mg tablet take 1 tablet (200 mg) by oral route once daily x 7 days 09/30 completed Not Available Not Available Not Available amlodipine 5 mg tablet Take 1 tablet(s) by mouth daily 04/11 completed Not Available Not Available Not Available citalopram 20 mg tablet Take 1 tablet(s) by mouth daily 08/14 completed Not Available Not Available Not Available Flagyl 500 mg tablet Take one tablet twice a day until gone. 11/11 completed Not Available Not Available Not Available podofilox 0.5 % topical solution Apply to affected area q12h for 3 days then stop for 4 days. Repeat weekly as directed. 12/04 completed Not Available Not Available Not Available clotrimazol e-betametha sone 1 %-0.05 % topical cream apply to the affected and surroundi ng areas of skin by topical route 2 times per day in the morning and evening 2021 active Not Available Not Available Not Avai lable hydrochloro thiazide 25 mg tablet Take 1 tablet(s) by mouth daily 02/02 completed Not Available Not Available Not Available cefdinir 300 mg capsule take 1 capsule (300 mg) by oral route every 12 hours x 7 days 09/30 completed Not Available Not Available Not Available amoxicillin 875 mg-potassiu m clavulanate 125 mg tablet take 1 tablet by oral route every 12 hours x 10 days 02/06 completed Not Available Not Available Not Available Bactrim DS 800 mg-160 mg tablet Take 1 tablet every 12 hours by oral route for 7 days. 02/16 completed Not Available Not Available Not Available Climara Pro 0.045 mg-0.015 mg/24 hr transdermal patch APPLY 1 PATCH TRANSDERM ALLY ONCE WEEKLY active Not Available Not Available No t Available metoprolol tartrate 25 mg tablet TAKE 1 TABLET(25 MG) BY MOUTH TWICE DAILY active Not Available Not Available No t Available lisinopril active Not Available Not Av ailable Not Available Farxiga 10 mg tablet take 1 tablet (10 mg) by oral route once daily in the morning 2021 active Not Available Not Available Not Avai lable Trulicity 0.75 mg/0.5 mL subcutaneou s pen injector inject 0.5 millilite r (0.75 mg) by subcutane ous route every 7 days 2021 active Not Available Not Available Not Avai lable Basaglar KwikPen U-100 Insulin 2021 active Not Available Not Available Not Avai lable insulin glargine 100 unit-lixise natide 33 mcg/mL subcutaneou s pen inject 15 unit as insulin glargine by subcutane ous route once daily 04/11 completed Not Available Not Available Not Available Ozempic active Not Available Not Avail able Not Available Dexcom G6 Sensor device 2021 active Not Available Not Available Not Avai lable Vitals Date Recorded Body mass index (BMI) Body height Provider Name and Address Organization Details Last Updated DateTime 02/02/2025 38.1 kg/m2 160.02 cm Kelly Viera PA-C [address] [place], [address], [place] - [place] [employer], [facility]. 02/02/2025 13:34:43 Date Recorded Body weight Body temperature Heart rate Oxygen saturation Oxygen saturation in Arterial blood by Pulse oximetry Systolic And Diastolic Provider Name and Address Organization Details Last Updated DateTime 5 44798.3 6 g 97.8 [degF] 84 /min 99 % 99 % 128/86 mm[Hg] Madiha Swift [place] - [employer] 13:13:30 Social History Question Answer Notes LastModified by Organizat ion Details LastModified Time Tobacco Smoking Status Never Smoker SocialHist oryQuestio n: 'Tobacco/A lcohol/Sup plements'; SocialHist oryRespons e: 'Never Smoker'; Not Available [facility] 01/28/2022 23:00:50 Is Your Home Air Conditioned? Yes [email or web address] Information not available 02/02/2025 Are There Any Guns Present In Your Home? No [email or web address] Information not available 02/02/2025 Do You Have Smoke And Carbon Monoxide Detectors In Your Home? Yes [email or web address] Information not available 02/02/2025 Are You Passively Exposed To Smoke? No Information not available 02/02/2025 Are There Any Smokers In Your House? No [email or web address] Information not available 02/02/2025 Has Tobacco Cessation Counseling Been Provided? No [email or web address] Information not available 02/02/2025 Sex: Unknown Functional Status Question Answer Note LastModified by Organizat ion Details LastModified Time Do you use any illicit or recreational drugs? No Information not available 02/02/2025 Do you or have you ever used any other forms of tobacco or nicotine? No [email or web address] Information not available 02/02/2025 Are you currently employed? Yes Information not available 02/02/2025 Do you have transportation difficulties? No Information not available 02/02/2025 Are you able to care for yourself independently? Yes [email or web address] Information not available 02/02/2025 Mental Status None recorded. Family History Relationship Description Onset Age of this Age Resolved Age Notes LastModified by Organization Details LastModified Time Unspecified Relation Family history of Myocardial infarction Relati ve: ''; [email or web address] Not available 01/28/2022 22:59:32 Unspecified Relation Family history of Hypertension Relati ve: ''; [email or web address] Not available 01/28/2022 22:59:32 Unspecified Relation Family history of diabetes mellitus type 2 Relati ve: ''; [email or web address] Not available 01/28/2022 22:59:32 Unspecified Relation Family history of congestive heart failure Relati ve: ''; [email or web address] Not available 01/28/2022 22:59:32 Unspecified Relation Family history of hyperlipidem ia Relati ve: ''; [email or web address] Not available 01/28/2022 22:59:33 Notes:*Procedure Description : Documented family medical history in mother*Relative: Mother *Procedure Description: Documented family medical history in father*Relative: Father *Procedure Description: Documented family medical history in brother*Relative: Brother *Procedure Description: Family history of cerebrovascular accident*Relative: Unspecified Relation *Problem: Relative: ''; Medical History Condition Response Diabetes Y Hypertension Y High Cholesterol Y Gynecological HistoryNo gynecological history recorded. Obstetrics History GPAL:G 0 P 0 0 0 0 Past Encounters Encounter ID Performer Location Encounter Start Date Encounter Closed Date Diagnosis/Indication Diagnosis SNOMED-CT Code Diagnosis ICD10 Code Diagnosis IMO Codes Diagnosis Note [id number] Kelly Viera PA-C [address] [address] 02/02/2025 13:10:01 02/03/2025 11:44:34 Boil of lower limb 130584820 L02.429 642948 Antibiotic as prescribed . Avoid picking or scratching area. Body mass index 30+ - obesity 499100047 E66.9 2777060 Non-smoker 3709985 Z78.9 756955 Health Concerns Section Related Observation LastModified by Organization Detai ls LastModified Time None Recorded Concern Status LastModified by Organization Details LastModified Time None Recorded Payers Encounter Date Sequence Insurance Name Policy Number Policy Nunes Covered Member ID Nunes Member ID Guarantor Name 02/02/2025 1 [employer]: [place] [id number] 2 Ayesha Nuñez [id number] Ayesha Nuñez Notes Date Note Type Note Provider Name and Address Organization Details Recorded Time 02/02/2025 text/html 54 yo white female presents with sore on left lower leg. Started one month ago like an infected hair follicle. Over the past 2 days has gotten larger, sore and tender. Has a history of boils on other areas of body but not any others currently. Denies fever, chills, elevated blood glucose or joint pain. Kelly Viera PA-C [address] [place] [address], [address], [facility] [employer] 02/02/2025 13:43:36 OBGyn Episode No OBEpisode recorded.
--- OUTSIDE RECORDS SUMMARY | 2025-03-31 09:32 | XMS_ITS | Data Portability ---
Author Organization [place] - [facility] & [place] [facility] Address [address] [place] [phone] Assessment No assessment recorded. Plan of Treatment [...] instructions recorded. Reason for Referral None Reported. Results Created Date Observation Date Name Description Value Unit Range Abnormal Flag Note LastModifiedBy Organization Detail LastModifiedTime 01/08/20 24 01/08/2024 STONE WICHO SIS(R ENAL CALCU ABRAN) note Unles s other díaz noted testi ng perfo rmed at: [facility] [address] [place] [address] Wisam south MD Not Available [facility] ([facility]) [address] [place] [address] [place], [address], 01/29/2024 00:08:36 01/08/20 24 01/29/2024 STONE WICHO SIS(R ENAL CALCU ABRAN) source Commen t . Not provi ded Not Available [facility] ([facility]) [address] [place] [address] [place], [address], 01/29/2024 00:08:36 01/08/20 24 01/29/2024 STONE WICHO SIS(R ENAL CALCU ABRAN) color Valdez Not Available [facility] ([facility]Op [facility]) [address] [place] [address] [place], [address], 01/29/2024 00:08:36 01/08/20 24 01/29/2024 STONE WICHO SIS(R ENAL CALCU ABRAN) size 4x3 mm Singl e piece recei kanu. Not Available [facility] (Pre-Op Clinic) [address] [facility] [place], [address], 01/29/2024 00:08:36 01/08/20 24 01/29/2024 STONE WICHO SIS(R ENAL CALCU ABRAN) weight 12 mg Not Available [facility] (Pre[facility]Op [facility]) [address] [facility] [place], [address], 01/29/2024 00:08:36 01/08/20 24 01/29/2024 STONE WICHO SIS(R ENAL CALCU ABRAN) composition Commen t . Perce ntage (Repr esent s the % compo sitio n) Not Available [facility] (Pre-Op Clinic) [address] [place] [address] [place], [address], 01/29/2024 00:08:36 01/08/20 24 01/29/2024 STONE WICHO SIS(R ENAL CALCU ABRAN) carbonate apatite 85 % Not Available [facility] (Pre[facility]Op [facility]) [address] [place] [address] [place], [address], 01/29/2024 00:08:36 01/08/20 24 01/29/2024 STONE WICHO SIS(R ENAL CALCU ABRAN) mg nh4 PO4 (struvite) 10 % Not Available [facility] (Pre[facility]Op [facility]) [address] [place] [address] [place], [address], 01/29/2024 00:08:36 01/08/20 24 01/29/2024 STONE WICHO SIS(R ENAL CALCU ABRAN) ammonium acid urate 5 % Not Available [facility] (Pre[facility]Op [facility]) [address] [place] [address] [place], [address], 01/29/2024 00:08:36 01/08/20 24 01/29/2024 STONE WICHO SIS(R ENAL CALCU ABRAN) comment Commyonatan t . Calci um phosp hate (carb jenn form) inclu nini carbo alireza apati te and carbo nated amorp hous calci um phosp hate. Carbo nated calci um phosp hate is more commo nly assoc iated with urina ry infec tion. [place] sitio n confi rmed by chemi marianna wicho sis. Not Available [facility] (Pre-Op Clinic) [address] [place] [address] [place], [address], 01/29/2024 00:08:36 01/08/20 24 01/29/2024 STONE WICHO SIS(R ENAL CALCU ABRAN) photo Alison jasso . Photo graph will follo w under a separ ate cover Not Available [facility] (Pre-Op Clinic) [address] [place] [address] [place], [address], 01/29/2024 00:08:36 01/08/20 24 01/29/2024 STONE WICHO SIS(R ENAL CALCU ABRAN) comment: Alison jasso . Physi darius quest ions regar ding Calcu li Wicho sis conta ct [facility] at: [phone]. Not Available [facility] (Pre-Op [facility]) [address] [place] [address] [place], [address], 01/29/2024 00:08:36 01/08/20 24 01/29/2024 STONE WICHO SIS(R ENAL CALCU ABRAN) please note: Alison jasso . Calcu li repor t will follo w via compu ter, mail or couri er cintia matta. Not Available [facility] (Pre-Op Clinic) [address] [place] [address] [place], [address], 01/29/2024 00:08:36 01/08/20 24 01/29/2024 STONE WICHO SIS(R ENAL CALCU ABRAN) disclaimer: Alison Pa This test was devel oped and its perfo rmanc e efren cteri stics deter mined by [facility]. It has not been clear ed or appro kanu by the Food and Drug Admin istra tion. Not Available [facility] ([facility]) [address] [place] [address] [place], [address], 01/29/2024 00:08:36 01/08/20 24 01/29/2024 STONE WICHO SIS(R ENAL CALCU ABRAN) pdf . Perfo rmed at: [facility] [address] [facility] , [place] [address] Lab Direc tor: Елена valiente PhD, Phone : [phone] Not Available [facility] ([facility]) [address] [place] [address] [place], [address], 01/29/2024 00:08:36 Result Notes None recorded. Problems Name Problem SNOMED Code Status Onset Date Resolution Date Notes Provider Name and Address Organization Details Recorded Time Hypertensive disorder 03049344 Active 2023 Philip mata, TIM - [facility] - [place] & [place] 4 09:12:31 Diabetes mellitus 51316369 Active 2023 Philip mata, TIM - [facility] - [place] & [place] 4 09:12:37 Sleep apnea 48721633 Active 2023 Philip mata, TIM - [facility] - [place] & [place] 4 09:12:45 Kidney stone 18873069 Active 2023 Philip mata, TIM - [facility] - [place] & [place] 4 09:12:53 Insertion of partial upper denture Active 2023 Philip mata, TIM - [facility] - [place] & [place] 4 09:13:12 Problem Notes Documentation Provider Name and Address Organization Details Recorded Time Consult Note Letter : *Consult History and Physical [facility] Name Ayesha Nuñez Date of Service 1606 [id number] (F) Attending RUPALI DUONG DO Admitted [id number] Discharged Primary ANASTASIA BOND - Chief Complaint Left flank pain HPI / Subjective patient is 53-year-old white female with 2 day history of left-sided flank pain. She presented to the emergency room earlier today at [facility]. CT scan reveals a 6 mm proximal left ureteral stone. Patient transferred to [facility] for urologic management. Patient states a previous history of stone 10 years ago that she passed. She has had positive nausea vomiting but no fever chills. Her white count and renal function are normal. Past Medical History Hyperlipidemia Diabetes mellitus Home Medications atorvastatin (LIPITOR) Dose: 20 MG BY MOUTH AT BEDTIME indomethacin (INDOCIN) Dose: 25 MG BY MOUTH THREE TIMES A DAY insulin glargine-YFGN 100 UNIT/ML Dose: 54 UNT SUBCUTANEOUS AT BEDTIME metoprolol tartrate Dose: 25 MG BY MOUTH TWICE A DAY Ozempic (1 MG/DOSE) Subcutaneous Solution Pen-injector 4 MG/3ML Dose: 1 MG SUBCUTANEOUS Allergies No Known Allergies Social History alcohol use No Known Use drug use No Known Use marital status Review of Systems Narrative See the history and physical for pertinent review of systems Physical Exam well-nourished white female in no apparent distress head is normocephalic neck is symmetric normal respiratory effort abdomen soft nondistended alert and oriented x3 Impression Occlusion of ureter due to calculus 1 of 2 *Consult History and Physical [facility] Name Ayesha Nuñez Date of Service 1606 [id number] (F) Attending RUPALI DUONG DO Admitted [id number] Discharged Primary ANASTASIA BOND - Recommendations 53-year-old white female with acute onset of left flank pain yesterday. CT scan reveals a 6 mm proximal left ureteral stone. She was transferred to [facility] for urologic management. I have discussed the CT findings with the patient and treatment options including trial of passage versus ureteroscopy and stone extraction. She wishes to proceed with stone extraction. We discussed the operative procedure and complications. She wishes to proceed under general anesthesia. Electronically signed by ANISA LEDEZMA MD on 1610 2 of 2 CC'ed Logic: CC Provider: ANASTASIA BOND; ANASTASIA BOND Attending Provider: RUPALI DUONG DO Referring Provider: RUPALI DUONG DO Admitting Provider: RUPALI DUONG DO Philip mata [facility] & [place] 01/12/2024 07:21:59 Procedures Surgical History Date Name Laterality Status Provider Name and Address Organization Details Recorded Time Tubal Ligation completed Philip Mobley [facility] & [place] 01/12/2024 09:14:15 procedure on ankle completed Philip Mobley [facility] & [place] 01/12/2024 09:14:21 Imaging Results None recorded. Procedure [...] Updated DateTime 01/12/2024 165.1 cm 33.8 kg/m2 34710.25 g 98 [degF] Philip Mobley [facility] & [place] 01/12/2024 09:10:48 Social History None recorded. Functional Status Question Answer Note LastModified by Organization D etails LastModified Time What is your level of alcohol consumption? None [email or web address] Information not available 01/12/2024 Mental Status None recorded. Family History Relationship Description Onset Age of this Age Resolved Age Notes LastModified by Organization Details LastModified Time Mother Sepsis dec [email or web address] Not available 01/12/2024 09:13:25 Brother Myocardial infarction dec [email or web address] Not available 01/11 09:13:36 Father Family history unknown [email or web address] Not available 2023 09:13:59 Medical History No medical history recorded. Gynecological HistoryNo gynecological history recorded. Obstetrics History GPAL:G 0 P 0 0 0 0 Past Encounters Encounter ID Performer Location Encounter Start Date Encounter Closed Date Diagnosis/Indication Diagnosis SNOMED-CT Code Diagnosis ICD10 Code Diagnosis IMO Codes Diagnosis Note [id number] Iraj So Jr, MD [facility] [address] [place] [address] 01/12/2024 08:33:05 01/12/2024 09:33:32 Occlusion of ureter due to calculus 13050854 N13.2 patient with 6 mm left proximal [...] 12/12/2023 1 [place] [id number] Ayesha A Debruler [id number] Ayesha A Debruler 04/07/2024 1 [place] [id number] Ayesha A Debruler [id number] Ayesha A Debruler Notes Date Note Type Note Provider Name and Address Organization Details Recorded Time 01/12/2024 text/html ROS as noted in the HPI patient is a 53-year-old white female with history of left flank pain due to a 6 mm proximal left ureteral stone. She underwent left ureteroscopy, laser lithotripsy and stent placement 4 days ago at [facility]. She returns today in follow-up. She states she feels much better. Her stone analysis is pending. She is tolerating her stent well. She was discharged home on the following day after stent placement. Iraj So Jr, MD [address] [place] [address], [address], [place], [address], [facility] - [place] & [place] 01/12/2024 09:38:05 OBGyn Episode No OBEpisode recorded.
--- OUTSIDE RECORDS SUMMARY | 2025-03-31 09:32 | XMS_ITS | Data Portability ---
Author Organization [facility] Address [address] [place] [address] Assessment No assessment recorded. Plan of Treatment Reminders Order Date Submit Date Provider Last Modified By Organization Details Last Modified Time Details Appointments None recorded. Lab None recorded. Referral None recorded. Procedures None recorded. Surgeries None recorded. Imaging None recorded. Medication Orders Bactrim DS 800 mg-160 mg tablet 025 025 [facility], [address] [place], [address], 05:01:28 Patient TargetsNo targets recorded. Patient Instructions Encounter Date Encounter Id Patient Instructions Last Modified By Organization Details Last Modified Time 02/02/2025 [id number] Antibiotics as prescribed. Warm moist compresses 2-3 times a day. Avoid picking or scratching area, do not shave in this area. F/u in 3 days if not improved. Recheck in 5 days. [email or web address] Not available 02/02/2025 13:42:40 Plan of care discussed with patient/guardian who voiced understanding. [email or web address] Not available 02/02/2025 13:42:46 Reason for Referral None Reported. Problems Name Problem SNOMED Code Status Onset Date Resolution Date Notes Provider Name and Address Organization Details Recorded Time Dysmenor tala 277691736 Completed 201406/06/2015 Not Available [facility] 21:25:42 Right lower quadrant pain 175150245 Completed 201508/13/2015 Problem Code: 789.03; Problem Code Type: ICD-9; Not Available [facility] 21:25:43 Acute vaginiti s 99915297 Completed 201511/07/2015 Problem Code: N76.0; Problem Code Type: ICD-10; Not Available [facility] 21:25:42 Vaginiti s and vulvovag initis Completed 201511/07/2015 Problem Code: 616.10; Problem Code Type: ICD-9; Not Available [facility] 21:25:43 Type 2 diabetes mellitus without complica tion 690212195 Active 2020 Not Available [facility] 21:25:42 Obesity 737556080 Active 2020 Not Available [facility] 21:25:42 Mixed hyperlip idemia 258957923 Active 2020 Problem Code: E78.2; Problem Code Type: ICD-10; Not Available [facility] 21:25:42 Hyperten sive disorder 42460782 Active 2020 Problem Code: I10; Problem Code Type: ICD-10; Not Available [facility] 21:25:42 Intertri go 86193261 Active 2021 Problem Code: L30.4; Problem Code Type: ICD-10; Not Available [facility] 21:25:42 Acute maxillar y sinusiti s 39497237 Active 2021 Problem Code: J01.00; Problem Code Type: ICD-10; Not Available [facility] 21:25:42 Acute non-supp urative serous otitis media 043295924 Active 2021 Problem Code: H65.01; Problem Code Type: ICD-10; Not Available [facility] 21:25:42 Problem Notes None recorded. Medical Equipment [...] kg/m2 160.02 cm Kelly Viera PA-C [address] [facility], [place], [address], [facility] [employer], [facility]. 02/02/2025 13:34:43 Date Recorded Body weight Body temperature Heart rate Oxygen saturation Oxygen saturation in Arterial blood by Pulse oximetry Systolic And Diastolic Provider Name and Address Organization Details Last Updated DateTime 5 27786.3 6 g 97.8 [degF] 84 /min 99 % 99 % 128/86 mm[Hg] Madiha Swift [place] [facility] [employer] 13:13:30 Social History Question Answer Notes LastModified by Organizat ion Details LastModified Time Tobacco Smoking Status Never Smoker SocialHist oryQuestio n: 'Tobacco/A lcohol/Sup plements'; SocialHist oryRespons e: 'Never Smoker'; Not Available [facility] 01/28/2022 23:00:50 Is Your Home Air Conditioned? Yes [email or web address] Information not available 02/02/2025 Are There Any Guns Present In Your Home? No [email or web address] Information not available 02/02/2025 Do You Have Smoke And Carbon Monoxide Detectors In Your Home? Yes [email or web address] Information not available 02/02/2025 Are You Passively Exposed To Smoke? No [email or web address] Information not available 02/02/2025 Are There Any Smokers In Your House? No [email or web address] Information not available 02/02/2025 Has Tobacco Cessation Counseling Been Provided? No [email or web address] Information not available 02/02/2025 Sex: Unknown Functional Status Question Answer Note LastModified by Organizat ion Details LastModified Time Do you use any illicit or recreational drugs? No [email or web address] Information not available 02/02/2025 Do you or have you ever used any other forms of tobacco or nicotine? No Information not available 02/02/2025 Are you currently employed? Yes Information not available 02/02/2025 Do you have transportation difficulties? No Information not available 02/02/2025 Are you able to care for yourself independently? Yes [email or web address] Information not available 02/02/2025 Mental Status None [...] ICD10 Code Diagnosis IMO Codes Diagnosis Note [id number] Kelly Viera PA-C [place] [phone] 02/02/2025 13:10:01 02/03/2025 11:44:34 Boil of lower limb 839107387 L02.429 [id number] Antibiotic as prescribed . Avoid picking or scratching area. Body mass index 30+ - obesity 603128841 E66.9 [id number] Non-smoker 2377607 Z78.9 [id number] Health Concerns Section Related Observation LastModified by Organization Detai ls LastModified Time None Recorded Concern Status LastModified by Organization Details LastModified Time None Recorded Advance Directives Directive None Recorded Payers Insurance Date Sequence Insurance Name Policy Number Policy Nunes Covered Member ID Nunes Member ID Guarantor Name 02/02/2025 1 *SELF PAY* Stephon Nuñez 02/02/2025 1 [employer] [id number] Ayesha Nuñez [id number] Ayesha Nuñez Notes Date Note Type Note [...] glucose or joint pain. Kelly Viera PA-C [address] [place] [address], [phone], [facility] [employer] 02/02/2025 13:43:36 OBGyn Episode No OBEpisode recorded.
--- NOTE | 2025-03-31 10:00 | MM_ITS ---
PROCEDURE INFORMATION: Exam: MG Bilateral Screening 3D Mammography Exam date and time: 03/31/2025 9:54 AM Age: 55 years old Clinical indication: Screening exam. TECHNIQUE: Imaging protocol: Bilateral Screening tomosynthesis and 2D mammography including computer-aided detection (CAD) when performed. COMPARISON: 1. MG MM DIG SCREENING MAMM BI W/CAD 03/29/2024 9:22 AM 2. MG MM DIG SCREENING MAMM BI W/CAD 03/23/2023 4:10 PM FINDINGS: MAMMOGRAPHY: Breast composition: There are scattered areas of fibroglandular density. Mass: No suspicious masses. Architectural distortion: None. Calcifications: No suspicious calcifications. Asymmetric density: None. Skin thickening: None. Axillary adenopathy: None. IMPRESSION: No mammographic evidence of malignancy. Annual screening is recommended unless otherwise clinically indicated. ASSESSMENT: BI-RADS Category 1: Negative.
== END 2025-03-31 23:59 | disposition home or self-care (01) ==
LOC: RAD 09:29
PROVIDERS: PCP Nurse Practitioner Family; Visit Provider Nurse Practitioner Family
DX: Z12.31 Encounter for screening mammogram for malignant neoplasm of breast (principal); R92.323 Mammographic fibroglandular density, bilateral breasts
CPT/HCPCS: 77063; 77067

== ENCOUNTER 2025-04-28 09:03 | Day surgery (SDC) | payer BC, OTHER, SELFPAY ==
[2025-04-25 10:50] VITALS: BMI 35.7
[2025-04-28 09:32] VITALS: BP 171/83; PULSE 66; RESP 18; TEMP 36.1; O2SAT 98
[2025-04-28] MEDS: LACTATED RINGERS 1000ML 1,000 ML 50 ML IV (09:37)
--- NOTE | 2025-04-28 09:42 | EXP.ANES.CKL ---
[facility] Disclaimer: The information contained in this section may have been updated after the patient was seen, as this information can be updated by other users. Medical History History of kidney stones Hyperlipidemia Hypertension Diabetes mellitus Surgical History History of ankle surgery History of endometrial ablation H/O oophorectomy Family History Mother Diabetes Father Diabetes Stroke Grandmother Diabetes Heart attack Social History Smoking Status: Never smoker second hand exposure: No alcohol intake: never substance use type: denies use current occupational status: employed Travel in the last 8 weeks?: None household members: spouse housing: house current occupation: registrar current occupational exposures/hazards: No caffeine: No Have you lived/traveled outside [place] in past 30 days?: No Contact w/someone who lives/traveled outside US past 30 days?: No Exposure to someone with infectious disease in past 14 days?: No Do you have a fever (greater than 100.4 F or 38 C)?: No Have you tested positive for COVID-19?: No Exposed to someone with COVID-19 in past 14 days?: No Do you have a sore throat?: No Do you have a cough?: No Do you have any weakness?: No Are you experiencing any nausea/vomitting?: No Do you have any diarrhea?: No Are you experiencing any unusual bleeding?: No Do you have any muscle aches/pain?: No Do you have any abdominal pain?: No Are you experiencing loss of taste or smell?: No [facility] Anesthesia Checklist Patient Identification Patient Identification: Verbal (Name & ) Structural Data Admitted From: Home Planned Operative Procedure/s: colonoscopy Consent for Planned Operative Procedure(s) Verified: Yes NPO Status Verified Time NPO: 00:00 Additional verifications Anesthesia Reactions: No Hx Blood Transfusions: No Blood Transfusion Reaction: No Airway Assessment Mallampati Score:: Class II C-Spine Mobility Assessed: Yes TMJ Mobility Assessed: Yes Dentition: Edentulous Neurological Assessment Level of Consciousness: Awake, Alert and Appropriate Anesthesia Plan Anesthesia Risk discussed: Yes Anesthesia Plan: Verified ASA Class: II Anesthesia Type: MAC
[2025-04-28 09:45] LABS: POC Glucose,Bedside 114 gm/dL (70-110)
--- NOTE | 2025-04-28 09:48 | EXP.GEN.HP ---
HPI HPI HPI: Patient is a 55-year-old female from [facility] with a history of obstructive sleep apnea, hypertension, hyperlipidemia, diabetes. She presents for initial screening colonoscopy. She does state that she had a devious Cologuard 3 years ago which was reportedly negative. [facility] Disclaimer: The information contained in this section may have been updated after the patient was seen, as this information can be updated by other users. Medical History (Updated 04/28/25 @ 10:34 by Jorge Alberto Flores MD) History of kidney stones Hyperlipidemia Hypertension Diabetes mellitus Surgical History History of ankle surgery History of endometrial ablation H/O oophorectomy Family History Mother Diabetes Father Diabetes Stroke Grandmother Diabetes Heart attack Social History Smoking Status: Never smoker second hand exposure: No alcohol intake: never substance use type: denies use current occupational status: employed Travel in the last 8 weeks?: None household members: spouse housing: house current occupation: registrar current occupational exposures/hazards: No caffeine: No Have you lived/traveled outside US in past 30 days?: No Contact w/someone who lives/traveled outside US past 30 days?: No Exposure to someone with infectious disease in past 14 days?: No Do you have a fever (greater than 100.4 F or 38 C)?: No Have you tested positive for COVID-19?: No Exposed to someone with COVID-19 in past 14 days?: No Do you have a sore throat?: No Do you have a cough?: No Do you have any weakness?: No Are you experiencing any nausea/vomitting?: No Do you have any diarrhea?: No Are you experiencing any unusual bleeding?: No Do you have any muscle aches/pain?: No Do you have any abdominal pain?: No Are you experiencing loss of taste or smell?: No Other Medical History Have you received the Flu Vaccine for this season: Yes Have you received the Pneumonia Vaccine: No Meds Home Medications and Allergies Home Medications ?Medication ?Instructions ?Recorded ?Confirmed ?Type pen needle, diabetic 31 gauge x #1,200 ea 03/05/22 10/18/24 History 5/16 (BD Ultra-Fine Short Pen Needle) blood sugar diagnostic (Accu-Chek #100 ea 03/14/24 10/18/24 Rx Gisell Plus test strips) lancets (Accu-Chek Softclix #100 ea 08/03/24 10/18/24 Rx Lancets) atorvastatin 20 mg tablet 20 mg PO HS 90 days #90 tabs 10/18/24 04/25/25 Rx pen needle, diabetic 32 gauge x #50 ea 12/26/24 Rx estradiol 0.05 mg-norethindrone 1 patch transdermal .semiweekly 30 01/16/25 04/25/25 Rx 0.14 mg/24 hr semiwkly transderm days #8 ea patch (CombiPatch) losartan 25 mg tablet 25 mg PO DAILY #30 tabs 03/06/25 04/25/25 Rx semaglutide 1 mg/dose (4 mg/3 mL) See Rx Instructions .Route 03/14/25 04/28/25 Rx subcutaneous pen injector (Ozempic) .COMPLEX #3 mL insulin glargine 100 unit/mL (3 See Rx Instructions .Route 03/31/25 04/25/25 Rx mL) subcutaneous pen (Lantus .COMPLEX #15 mL Solostar U-100 Insulin) metoprolol tartrate 25 mg tablet See Rx Instructions .Route 03/31/25 04/28/25 Rx .COMPLEX #60 tabs sodium,potassium,mag sulfates 17.5 See Rx Instructions PO .COMPLEX 04/11/25 Rx gram-3.13 gram-1.6 gram oral soln #354 mL (Suprep Bowel Prep Kit) New Prescriptions to Start Prescriptions: Allergies Allergy/AdvReac Type Severity Reaction Status Date / Time No Known Allergies Allergy Verified 04/28/25 09:30 Exam Data for Last 24 hours Vital signs and Labs for Last 24 Hours: Temp Pulse Resp BP Pulse Ox O2 Del Method 97.0 F L 66 18 171/83 H 98 Room Air 04/28/25 09:32 04/28/25 09:32 04/28/25 09:32 04/28/25 09:32 04/28/25 09:32 04/28/25 09:32 Laboratory Results - last 24 hr 04/28/25 09:33: POC Glucose 114 H I & O for Last 24 hours: Intake & Output 04/25/25 04/26/25 04/27/25 04/28/25 11:59 11:59 11:59 11:59 Weight 215 lb Constitutional Constitutional: no acute distress *Routine HEENT Exam Head: Present normocephalic Eye: Present EOMI and PERRL ENT: Present mucous membranes moist *Routine Neck Exam Neck: Present supple; Absent lymphadenopathy *Routine Respiratory Exam Respiratory: Present CTA bilaterally *Routine Cardiovascular Exam Cardiovascular: Present RRR *Routine Abdominal Exam Abdominal: Present soft and normoactive bowel sounds; Absent tenderness *Routine Rectal Exam Rectal:: deferred *Routine Genitalia Exam Genitalia:: deferred *Routine Extremities Exam Extremities: Absent cyanosis, clubbing or edema *Routine Skin Exam Skin: Present warm; Absent rash *Routine Neurological Exam Neurological: Present alert and oriented X3 Results Results Lab Results Last 24 Hours:: Laboratory Results - last 24 hr 04/28/25 09:33: POC Glucose 114 H Assessment and Plan *Assessment and plan (1) Encounter for screening colonoscopy: Status: Acute Category: Medical Code(s): Z12.11 - Encounter for screening for malignant neoplasm of colon Plan Colonoscopy
[2025-04-28 10:33] VITALS: BP 114/50; PULSE 66; RESP 16; TEMP 36.4; O2SAT 99
--- NOTE | 2025-04-28 10:35 | HMH.SCOPE ---
Procedure: Date: 04/28/25 Patient Date of :: 1970 Procedure Performed:: Total colonoscopy to terminal ileum with polypectomy Indications:: Patient is a 55-year-old female from [facility] with a history of obstructive sleep apnea, hypertension, hyperlipidemia, diabetes. She presents for initial screening colonoscopy. She does state that she had a devious Cologuard 3 years ago which was reportedly negative. Performing Provider:: Jorge Alberto Flores MD Referring Provider:: Rosa Kam Sedation:: MAC sedation Procedure:: Patient history was obtained and appropriate physical examination was performed. Patient's medications and allergies were reviewed. Informed consent was obtained after explaining the benefits, alternatives, and risks of the procedure including, but not limited to, bleeding, perforation, missed lesions, and adverse reaction to anesthesia medications. Patient was transported to endoscopy procedure room. Patient was connected to monitoring devices. Throughout the procedure the patient's blood pressure, pulse, and oxygen saturations were monitored continuously. Patient identification and planned procedure were verified by the staff. Patient was positioned in lateral decubitus position. Digital anorectal exam was performed. Variable stiffness Olympus colonoscope was inserted and advanced under direct visualization to the cecum. Adequacy of the colonic preparation was noted. The colonoscope was advanced a short distance into the terminal ileum. The colonoscope was then slowly withdrawn while carefully examining the color, texture, anatomy, and integrity of the mucosoa circumferentially. Within the rectum retroflexion was performed. Colonoscope was then withdrawn. Impression: Digital examination revealed diminished sphincter tone. She had some atonic colon. Upon withdrawal after reaching the terminal ileum there was a sessile polyp at the hepatic flexure. Between 2 folds initially difficult to identify. This was removed with cold snare. In the rectosigmoid region there was a flat polyp removed with cold snare, possibly hyperplastic. Within the rectum there were a couple of probable hyperplastic polyps removed with biopsy forceps. . Findings:: Polyps as noted Recommendations:: Repeat colonoscopy pending pathology, likely within 5 years Complications:: None immediately apparent Estimated blood obtained (mL): 1 Colonoscopy Component Colonoscopy Component Was a colonoscopy performed during today's procedure?: Yes Recommended follow up colonoscopy of at least 10 years?: No If no, follow up colonoscopy recommended in ___ years?: See above Reason for not recommending >/= 10 yr follow-up interval?: See above
[2025-04-28 10:43] VITALS: BP 118/52; PULSE 64; RESP 18; TEMP 36.4; O2SAT 99
[2025-04-28 10:53] VITALS: BP 118/59; PULSE 66; RESP 18; TEMP 36.4; O2SAT 99
[2025-04-28 11:03] VITALS: BP 112/77; PULSE 66; RESP 18; TEMP 36.4; O2SAT 99
== END 2025-04-28 11:03 | disposition home or self-care (01) ==
PROVIDERS: PCP Nurse Practitioner Family; Visit Provider Surgery
PROC: 0DJD8ZZ Inspection of Lower Intestinal Tract, Via Natural or Artificial Opening Endoscopic (ICD-10-PCS; CPT 45380; principal; 2025-04-28 10:30)
DX: D12.7 Benign neoplasm of rectosigmoid junction (principal); E11.9 Type 2 diabetes mellitus without complications; Z87.440 Personal history of urinary (tract) infections; Z87.441 Personal history of nephrotic syndrome; E78.5 Hyperlipidemia, unspecified; I10 Essential (primary) hypertension; Z90.722 Acquired absence of ovaries, bilateral; Z79.85 Long-term (current) use of injectable non-insulin antidiabetic drugs; Z79.899 Other long term (current) drug therapy; G47.33 Obstructive sleep apnea (adult) (pediatric)
CPT/HCPCS: 45380; 82962; J2003; J2704; J7120

== ENCOUNTER 2025-05-15 09:00 | Outpatient (CLI) | payer BC, OTHER, SELFPAY ==
[2025-05-15 19:22] LABS: Hematocrit 39.8 % (37.0-47.0); Hemoglobin 12.7 g/dL (12.2-16.2); Immature Granulocytes % 0.3 %; Mean Corpuscular HGB Conc 31.9 g/dL (31.8-35.4); Mean Corpuscular Hemoglobin 29.5 pg (27.0-31.2); Mean Corpuscular Volume 92.3 fl (81-99); Nucleated Red Blood Cells % 0 %; Platelet Count 238 K/mm3 (142-424); Red Blood Count 4.31 M/mm3 (4.20-5.40); Red Cell Distribution Width-SD 44.3 fL; White Blood Count 6.2 K/mm3 (4.8-10.8)
[2025-05-15 20:06] LABS: Alanine Aminotransferase 20 U/L (12-78); Albumin Level 4.3 g/dl (3.5-5.0); Albumin/Globulin Ratio 1.6 (1.1-1.8); Alkaline Phosphatase 100 U/L (38-126); Anion Gap 12.6 mEq/L (5-15); Aspartate Amino Transferase 26 U/L (14-36); Bilirubin,Total 0.9 mg/dl (0.2-1.3); Blood Urea Nitrogen 23 mg/dl (7-17); Calcium 9.0 mg/dl (8.4-10.2); Carbon Dioxide 27 mmol/L (22.0-30.0); Chloride 103 mmol/L (98-107); Cholesterol 104 mg/dl (140-200); Creatinine,Serum 1.20 mg/dl (0.52-1.04); Estimated Glomerular Filt Rate 46 ml/min (>60); GFR (African American) 56 ML/MIN (>60); Globulin 2.7 g/dL (1.3-3.2); Glucose 93 mg/dl (74-100); HDL Cholesterol 36 mg/dl (40-60); Potassium 4.6 mmoL/L (3.5-5.1); Sodium 138 mmol/L (136-145); Total Protein,Serum 7.0 g/dl (6.3-8.2); Triglycerides 71 mg/dl (30-150)
[2025-05-15 20:38] LABS: Thyroid Stimulating Hormone 2.48 uIU/mL (0.465-4.68)
--- OUTSIDE RECORDS SUMMARY | 2025-05-16 12:01 | XMS_ITS | Clinical Summary ---
Author Organization [facility] Address [address] [place] [address] Care Team Providers Care Trestle Builder Name Role Phone Provider, No Known Primary Care Provider Unavail able Allergies No known active allergies Medications atorvastatin (LIPITOR) 10 MG tablet 08/16/2018 Active citalopram (CeleXA) 20 MG tablet 09/04/2018 Active hydrochlorothia zide (HYDRODIURIL) 25 MG tablet 07/22/2018 Active meloxicam (MOBIC) 15 MG tablet Take 15 mg by mouth Daily. 0 08/06/2018 Active metoprolol tartrate (LOPRESSOR) 25 MG tablet 0 08/09/2018 Active Blood Glucose Monitoring Suppl (ACCU-CHEK HEIKE PLUS) w/Device kit See Admin Instructions. 0 07/19/2018 Active METFORMIN HCL PO Take by mouth. Active methylPREDNISol one (MEDROL, DAVID,) 4 MG tabletIndicatio ns:Laryngitis Take as directed on package instructions. 21 tablet 10/07/2018 Active Active Problems No known active problems Social History Tobacco Use Types Packs/Day Years Used Date Smoking Tobacco: Never Abuse Screen Answer Date Recorded Unsafe at Home or Work/School Not on file Feels Threatened by Someone? Not on file 04/2023 Does Anyone Keep You from Co ntacting Others or Doint Things Outside the Home? Not on file 2023 Physical Sign of Abuse Present Not on file 1 Housing Stability Answer Date Recorded Current Living Arrangements Not on file 02/22 Potentially Unsafe Housing Conditions Not on sarah e 2023 Family and Community Support Answer Abraham e Recorded Help with Day-to-Day Activities Not on file 2023 Lonely or Isolated Not on file 2023 Employment Answer Date Recorded Do you want help finding or keeping work or a omar b? Not on file 2023 Disabilities Answer Date Recorded Concentrating, Remembering, or Making Decisions Difficulty Not on file 2023 Doing Errands Independently Difficulty Not on fi le 2023 Education Answer Date Recorded Help with school or training? Not on file Preferred Language Not on file 2023 Comments No Sex and Gender Information Value Date Recorded Sex Assigned at Not on file Legal Sex Female 9:56 AM EDT Gender Identity Not on file Sexual Orientation Not on file Last Filed Vital Signs Vital Sign Reading Time Taken Comments Blood Pressure 126/88 10/07/2018 10:10 AM EDT Pulse 76 10/07/2018 10:10 AM EDT Temperature 36.7 C (98 F) 10/07/2018 10:10 AM EDT Respiratory Rate 16 10/07/2018 10:10 AM EDT Oxygen Saturation 98% 10/07/2018 10:10 AM EDT Inhaled Oxygen Concentration - - Weight 101 kg (222 lb 12.8 oz) 10/07/2018 10:10 AM EDT Height 162.6 cm (5' 4 ) 10/07/2018 10:10 AM EDT Body Mass Index 38.24 10/07/2018 10:10 AM EDT Plan of Treatment Health Maintenance Due Date Last Done Comments Annual Gynecologic Pelvic and Breast Exam 1970 TDAP/TD VACCINES (1 - Tdap) 1988 MAMMOGRAM 2009 COLOGUARD 2014 COLON CANCER SCREENING 5 YEAR SIGMOIDOSCOPY 2014 COLONOSCOPY [address]CER SCREENING [address] COLONOGRAPHY 2014 FECAL OCCULT BLOOD TEST 2014 FIT Testing (1 year) 2014 ANNUAL PHYSICAL 10/07/2018 HEPATITIS C SCREENING 10/07/2018 Pneumococcal Vaccine 50+ (1 of 1 - PCV) 2019 ZOSTER VACCINE (1 of 2) 2019 INFLUENZA VACCINE 12/23/[id number] EMPLOYEE Care Teams Trestle Builder Relationship Specialty Start Date End Date Provider, No Known [facility] [place] [address] PCP - General 10/07/18
--- OUTSIDE RECORDS SUMMARY | 2025-05-16 12:01 | XMS_ITS | Clinical Summary ---
Author Organization [facility] Address [address] [place] [address] Care Team Providers Care Equipment Tech Name Role Phone Kelly Viera Primary Care Provider [phone] Allergies No known active allergies Medications atorvastatin (Lipitor) 20 MG tabletIndicatio ns:Type 2 diabetes mellitus with other specified complication, with long-term current use of insulin Take 1 tablet (20 mg total) by mouth every night. 90 tablet 3 01/03/2022 Active Lancets misc Use to check blood sugar 4 times a day. 200 each 5 02/28/2022 Active Insulin Pen Needle (BD Pen Needle Adeola 2nd Gen) 32G X 4 MM misc Use 1 per day 100 each 3 03/10/2022 Active metFORMIN (Glucophage) 500 MG tabletIndicatio ns:Type 2 diabetes mellitus with other specified complication, with long-term current use of insulin Take 2 tablets (1,000 mg total) by mouth 2 (two) times a day with meals. 360 tablet 3 04/28/2022 Active Basaglar KwikPen 100 UNIT/ML injection penIndications: Type 2 diabetes mellitus with other specified complication, with long-term current use of insulin Inject 24 Units under the skin every night. 30 mL 2 04/28/2022 Active Farxiga 10 MG tabletIndicatio ns:Type 2 diabetes mellitus with other specified complication, with long-term current use of insulin Take 1 tablet (10 mg total) by mouth 1 (one) time each day in the morning. 90 tablet 2 04/28/2022 Active lisinopril 5 MG tabletIndicatio ns:Type 2 diabetes mellitus with other specified complication, with long-term current use of insulin,Stage 2 chronic kidney disease Take 1 tablet (5 mg total) by mouth 1 (one) time each day. 90 tablet 2 04/28/2022 Active hydroCHLOROthia zide (HYDRODiuril) 25 MG tabletIndicatio ns:Type 2 diabetes mellitus with other specified complication, with long-term current use of insulin TAKE 1 TABLET(25 MG) BY MOUTH 1 TIME EACH DAY 90 tablet 1 06/27/2022 Active Active Problems Problem Noted Date Diagnosed Date Stage 2 chronic kidney disease 04/28/2022 Neuropathy 09/27/2021 BP (high blood pressure) 09/20/2021 High cholesterol 09/20/2021 Hot flashes due to menopause 09/20/2021 Type 2 diabetes mellitus, wi th long-term current use of insulin 09/20/2021 Hyperlipidemia 09/20/2021 Hypertension 09/20/2021 Obesity (BMI 30-39.9) 09/20/2021 Family History Medical History Relation Name Comments Heart attack Brother Diabetes Father Stroke Father Diabetes Maternal Grandmother Diabetes Mother Diabetes Other Relation Name Status Comments Brother Father Maternal Grandmother Mother Other Social History Tobacco Use Types Packs/Day Years Used Date Smoking Tobacco: Never Smokeless Tobacco: Never Tobacco Cessation:Counseling Given: Not Answered Alcohol Use Standard Drinks/Week Comments Not Currently 0 (1 standard drink = 0.6 oz pur e alcohol) Comments Unknown Sex and Gender Information Value Date Recorded Sex Assigned at Female 08/15/2021 2:25 PM EDT Legal Sex Female 11:01 AM EDT Gender Identity Female 08/15/2021 2:25 PM EDT Sexual Orientation Straight 08/15/2021 2: 25 PM EDT Last Filed Vital Signs Vital Sign Reading Time Taken Comments Blood Pressure 131/85 04/28/2022 9:04 AM EST Pulse 69 04/28/2022 9:04 AM EST Temperature - - Respiratory Rate - - Oxygen Saturation - - Inhaled Oxygen Concentration - - Weight 91.6 kg (201 lb 15.1 oz) 04/28/2022 9:04 AM EST Height 165.1 cm (5' 5 ) 04/28/2022 9:04 AM EST Body Mass Index 33.6 04/28/2022 9:04 AM EST Plan of Treatment Health Maintenance Due Date Last Done Comments [facility]-Depression Screening 1969 [facility]-Infant/Child/Adol SDOH Screenings 1969 [facility]- SDOH Screenings 1987 [facility]-Adult SDOH Screenings 1987 [facility]-Hepatitis B Vaccines (1 of 3 - 19+ 3-dose series) 1988 [facility]-Pap Smear 1990 [facility]-Cervical Cancer Screening 1999 [facility]-HPV/Cotest 1999 CT Colonography 2014 Colonoscopy 2014 FIT-DNA 2014 FIT 2014 FOBT 2014 Sigmoidoscopy 2014 [facility]-Colorectal Cancer Screening 2014 [facility]-Pneumococcal Vaccine: 50 + Years (1 of 1 - PCV) 2019 [facility]-Zoster Vaccines (1 of 2) 2019 [id number] Vaccine (3 - season) 2025 05/21/2021, 04/11/2021 [facility]-Influenza Vaccine (#1) 01/23/202503/22, 03/26/2018 [facility]-DTaP,Tdap,and Td Vaccine s (2 - Td or Tdap) 03/04/2029 03/04/2019 [facility]-Diabetes: Hemoglobin A1C Discontinued 09/2021, 01/03/2022, 09/20/2021 HPV Vaccines (No Doses Required) Completed [facility]-HIB Vaccines Aged Out No longer e ligible based on patient's age to complete this topic [facility]-Hepatitis A Vaccines Aged Out No longer eligible based on patient's age to complete this topic [facility]-IPV Vaccines Aged Out No longer e ligible based on patient's age to complete this topic [facility]-Rotavirus Vaccines Aged Out No lo nger eligible based on patient's age to complete this topic Procedures Procedure Name Priority Date/Time Associated Diagnosis Comments POCT GLYCOSYLATED HEMOGLOBIN (HGB A1C) Routine 04/28/2022 9:14 AM EST Type 2 diabetes mellitus with other specified complication, with long-term current use of insulin (CMS/HCC) from Last 3 Months or Most Recently Relevant to Health Maintenance Results * POCT glycosylated hemoglobin (Hb A1C) docked device (04/28/2022 9:14 AM EST) POCT Hemoglobin A1C 7.6 4.4-6.6 % % [facility] Kit Lot Number n/a [facility] Kit Expiration Date n/a [facility] Blood Venous blood specimen / Unknown 04/28/2022 9:14 AM EST Lizbeth Young FINANCIAL ADMINISTRATION OFFICER POINT OF CARE TEST ENTER/E DIT ORDERABLES Final Result [facility] [address] [place] [address] from Last 3 Months or Most Recently Relevant to Health Maintenance Insurance [id number] Care Teams Equipment Tech Relationship Specialty Start Date End Date Kelly Viera PA [address] [place] [address] PCP - General 08/15/21
== END 2025-05-15 23:59 | disposition home or self-care (01) ==
LOC: LAB.DROPOF 05-16 11:58
PROVIDERS: PCP Nurse Practitioner Family; Visit Provider Nurse Practitioner Family
DX: E78.5 Hyperlipidemia, unspecified (principal); E11.9 Type 2 diabetes mellitus without complications; I10 Essential (primary) hypertension
CPT/HCPCS: 80053; 80061; 84443; 85025